=== PATIENT | female | born 1975 | race Two or more races ===

== ENCOUNTER → 2021-11-20 09:31 | Outpatient (BNVA) | payer OTHER, MEDICAID, SELFPAY | PROVIDERS: PCP Internal Medicine; Visit Provider Orthopaedic Surgery | DX: M25.461 Effusion, right knee (principal) | CPT/HCPCS: 99202 ==

== ENCOUNTER 2021-11-27 13:10 | Outpatient (REF) | payer OTHER, MEDICAID, SELFPAY ==
--- NOTE | ~2021-11-27 | MR_ITS ---
EXAMINATION: MR KNEE WITHOUT CONTRAST, RIGHT CLINICAL INFORMATION: Effusion, pain COMPARISON: None TECHNIQUE: MRI of the knee without contrast was performed using routine sequences on a high-field scanner. FINDINGS: MENISCI: Medial Meniscus: Intact Lateral Meniscus: Complex tear. Majority of the posterior horn and body is torn, with meniscal tissue displaced into the intercondylar region and adjacent to the anterior horn. There is diminutive irregular tissue remaining in the region of the posterior horn and body. LIGAMENTS: Cruciate: Intact Collateral: Intact EXTENSOR MECHANISM: Intact. ARTICULAR CARTILAGE/BONE: Patellofemoral Compartment: Prominent cartilage loss in the lateral patellar facet. There is cartilage thinning and fissuring in the central patella. Scattered foci of cartilage thinning and fissuring in the trochlear. Medial Compartment: Focus of moderate to high-grade cartilage loss in the central medial femoral condyle. Cartilage thinning and fissuring otherwise present in the femoral condyle. Marginal osteophytes. Lateral Compartment: Full-thickness oblique fissure in the lateral femoral condyle. Cartilage heterogeneity and fissuring in the medial tibial plateau. Marginal osteophytes. JOINT FLUID AND BURSAE: Moderate effusion. Small to moderate Singh's cyst. Subcutaneous edema. MR/MR knee RT wo con IMPRESSION: 1. Complex tear of the lateral meniscus, with tear of majority of the posterior horn and body, with meniscal tissue displaced into the intercondylar region and along the anterior horn. 2. Moderate patellofemoral compartment, mild medial compartment arthritis. Mild lateral compartment arthritis, including an oblique full-thickness fissure in the lateral femoral condyle. 3. Moderate effusion. Small to moderate Singh's cyst.
== END 2021-11-27 13:11 | disposition home or self-care (01) ==
LOC: HO.MRI 13:10
PROVIDERS: Visit Provider Orthopaedic Surgery
DX: M25.461 Effusion, right knee (principal)
CPT/HCPCS: 73721

== ENCOUNTER → 2021-12-04 09:50 | Outpatient (BNVA) | payer OTHER, MEDICAID, SELFPAY | PROVIDERS: PCP Internal Medicine; Visit Provider Orthopaedic Surgery | DX: S83.271A Complex tear of lateral meniscus, current injury, right knee, initial encounter (principal) | CPT/HCPCS: 99212 ==

== ENCOUNTER 2022-01-06 08:32 | Day surgery (SDC) | payer MEDICAID, SELFPAY ==
--- NOTE | 2022-01-05 08:38 | P.CONAN_ITS ---
Documented by User: Noemí Toussaint NP 01/05/22 08:40 HPI - Anesthesia Eval Consult details Narrative: 46yo F for Right Knee Arthroscopy PMFSH Active Problems Active Problems: All Active Problems (Updated 12/31/21 @ 10:29 by Paola Levy RN) Knee effusion, right (Acute) Lateral meniscus tear (Acute) Past Medical History Medical History Asthma Hypertension Family History Family History Mother Breast cancer in female Father Colon cancer Surgical History Surgical History History of axillary surgery History of esophagogastroduodenoscopy (EGD) History of tubal ligation Hx laparoscopic cholecystectomy Social History Social History Patient Tobacco Use Status: Never used Tobacco Use of substances other than those prescribed or required for medical reasons: No Are you DNR?: No Advance Directives: No Advance Directives Information Provided: Yes Recently lost weight without trying: No Nutrition Risks: No Nutritional Risk Current occupational status: employed 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 Meds Allergies Allergy/AdvReac Type Severity Reaction Status Date / Time No Known Allergies Allergy Verified 11/20/21 09:36 [No Known Allergies*] Home Medications Medication Instructions Recorded Confirmed Last Taken Type albuterol sulfate 90 mcg/actuation 2 puff PO Q4-6H PRN Shortness Of 11/20/21 01/06/22 History aerosol inhaler Breath aspirin 81 mg tablet,delayed 81 mg PO DAILY 11/20/21 Unknown History release fluticasone furoate 100 1 ea inhalation DAILY 11/20/21 01/06/22 History mcg-vilanterol 25 mcg/dose inhalation powder (Breo Ellipta) lisinopril 5 mg tablet 5 mg PO DAILY 11/20/21 Unknown History metoprolol tartrate 25 mg tablet 25 mg PO DAILY 11/20/21 01/06/22 History Exam Exam Date and Time: January 05, 2022 0838 Height,Weight and Vital Signs: Height 5 ft 10 in Assessment and Plan Assessment Anesthesia Assessment: Chart Reviewed Documented by User: Neli Pope MD 01/06/22 10:11 PMFSH Active Problems Active Problems: All Active Problems (Updated 12/31/21 @ 10:29 by Paola Levy RN) Knee effusion, right (Acute) Lateral meniscus tear (Acute) Increased BMI. Denies MAGUE or snoring Past Medical History Medical History Asthma Hypertension Family History Family History Mother Breast cancer in female Father Colon cancer Family history of problems with anesthesia: No Surgical History Surgical History History of axillary surgery History of esophagogastroduodenoscopy (EGD) History of tubal ligation Hx laparoscopic cholecystectomy History of Problems with Anesthesia: No Social History Social History Patient Tobacco Use Status: Never used Tobacco Use of substances other than those prescribed or required for medical reasons: No Are you DNR?: No Advance Directives: No Advance Directives Information Provided: Yes Recently lost weight without trying: No Nutrition Risks: No Nutritional Risk Current occupational status: employed 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 Meds Allergies Allergy/AdvReac Type Severity Reaction Status Date / Time No Known Allergies Allergy Verified 11/20/21 09:36 [No Known Allergies*] Home Medications Medication Instructions Recorded Confirmed Last Taken Type albuterol sulfate 90 mcg/actuation 2 puff PO Q4-6H PRN Shortness Of 11/20/21 01/06/22 History aerosol inhaler Breath aspirin 81 mg tablet,delayed 81 mg PO DAILY 11/20/21 Unknown History release fluticasone furoate 100 1 ea inhalation DAILY 11/20/21 01/06/22 History mcg-vilanterol 25 mcg/dose inhalation powder (Breo Ellipta) lisinopril 5 mg tablet 5 mg PO DAILY 11/20/21 Unknown History metoprolol tartrate 25 mg tablet 25 mg PO DAILY 11/20/21 01/06/22 History Exam Height,Weight and Vital Signs: Height 5 ft 7 in Weight 113.398 kg Vital Signs Temp Pulse Resp BP Pulse Ox O2 Del Method 01/06/22 08:59 97.3 F 70 16 117/62 97 Room Air Airway Mallampati Class: II TM Dist: >3cm Neck ROM: Full Loose/Missing/Broken Teeth: No Heart: RRR Lungs: CTAB. Diminished Assessment and Plan Assessment Anesthesia Assessment: Anesthesia Plan Discussed Final Anesthetic Review Family History of Problems with Anesthesia: No History of Problems with Anesthesia: No NPO: Yes ASA Class: III Final Preanesthetic Review: No Changes in Pt Med Stat, Meds/Allgs Chart Reviewed, Consent Obtained/Reviewed and Anes Risks/Benef Reviewed Patient Risk: Intermediate Procedure Risk: Low Assessment/Block/Sedation in SS: Assess/Block/Sedation-SS Anesthetic Plan Anesthetic Plan: GA Disposition: Standard PACU
[2022-01-06] VITALS (11 sets, daily range): BP systolic 93–123; BP diastolic 53–70; PULSE 64–83; RESP 16–19; TEMP 36.1–36.5; O2SAT 97–100; BMI 39.1
[2022-01-06] MEDS: Lactated Ringers 1,000 ML 100 ML IVCONT (09:30)
--- NOTE | 2022-01-06 11:24 | PM.OP ---
Brief Operative Note Date of Service: 01/06/22 Pre-op diagnosis: right knee lateral meniscus tear Post-op diagnosis: other (1) bucket handle lateral meniscus tear 2) Right knee OA) Procedure: Lateral meniscectomy and chondroplasty Implants: none Surgeon: Robby Muir MD Anesthesia: GETA and local Was an Securities Lending Trader used for this Procedure?: No Estimated blood loss (mL): 10 Tourniquet time (min): 25 Pathology: none sent Condition: stable Disposition: PACU
--- NOTE | 2022-01-06 11:30 | P.OP_ITS ---
Operative Note Operative Note Date of Service: 01/06/22 Narrative: Date of Service: 01/06/22 Pre-op diagnosis: right knee lateral meniscus tear Post-op diagnosis: other (1) bucket handle lateral meniscus tear 2) Right knee OA) Procedure: Lateral meniscectomy and chondroplasty Implants: none Surgeon: Robby Muir MD Anesthesia: GETA and local Was an Frozen Food Department Manager used for this Procedure?: No Estimated blood loss (mL): 10 Tourniquet time (min): 25 Pathology: none sent Condition: stable Disposition: PACU Procedure in detail: Patient was brought to the operating room placed supine on the arthroscopic table and prepped and draped in standard sterile fashion. A time-out was called to identify proper site proper procedure proper surgeon and IV antibiotics per weight were administered. I began by exsanguinating the limb and insufflating tourniquet to 300 mm Hg. Then made a standard anterolateral stab incision. The knee was insufflated with water and 30 degree arthroscope was placed. There was grade 3/4 fibrillations of the patella and trochlea without loose bodies in the supra-patellar pouch. I descended into the medial compartment where I made my medial portal under direct visualization. The medial meniscus was intact. There was scattered G4 chnages of the MFC. THe ACL was intact and the lateral meniscus posterior horn was displaced in the notch c/w a bucket handle tear.. There was a large central lesion of the LFC. Given the concomitant OA and the large LFC chondral defect repair was contra-indicated. Therefore I used a combination of biter shaver and cautery to remove the unstable portions of the bucket handle lateral meniscus tear. 60% of the meniscal volume was removed. I then performed a tricompartmental chondral debridement. Once I was satisfied with this the ACL was examined and found to be intact . I then removed all instrumentation and closed the portals with skin glue. 25 mL of 2% Marcaine with epinephrine was injected into the joint and the surrounding soft tissues. Patient was then placed in sterile dressing and extubated brought recovery room stable condition. There were no known complications.
[2022-01-06] MEDS: fentaNYL citrate/PF 100 MCG/2 ML VIAL 25 MCG IVPUSH ×2 (11:55→12:09)
[2022-01-06] MEDS: oxyCODONE HCl Immed Release 5 MG TABLET PO (11:56)
[2022-01-06] MEDS: Acetaminophen 325 MG TABLET 650 MG PO (11:56)
== END 2022-01-06 13:07 | disposition home or self-care (01) ==
PROVIDERS: Visit Provider Orthopaedic Surgery
PROC: (CPT 29870; principal; 2022-01-06 11:30)
DX: S83.251A Bucket-handle tear of lateral meniscus, current injury, right knee, initial encounter (principal); M17.11 Unilateral primary osteoarthritis, right knee; M25.461 Effusion, right knee; X50.1XXA Overexertion from prolonged static or awkward postures, initial encounter; Y93.9 Activity, unspecified; Y92.9 Unspecified place or not applicable; Y99.8 Other external cause status; I10 Essential (primary) hypertension; J45.909 Unspecified asthma, uncomplicated; Z79.51 Long term (current) use of inhaled steroids; Z79.899 Other long term (current) drug therapy
CPT/HCPCS: 29881; J0171; J0690; J1100; J2250; J2405; J2795; J3010

== ENCOUNTER 2022-03-02 07:00 | Outpatient (RCR) | payer MEDICAID, SELFPAY ==
--- NOTE | 2022-04-14 08:55 | MHC.PT.DC ---
[facility] [place] Office [place] Office [place] Office [address] Sonam Castro [address] [facility] [phone] F: [phone] F: [phone] F: [phone] F: [phone] Physical Therapy Discharge Report Diagnosis: s/p Right knee lateral meniscectomy and chondroplasty Date of Surgery: 01/06/2022 Date of Evaluation: 01/21/22 Date of Discharge: 04/14/22 Treatments to Date: 9 Cancellations to Date: 3 No Shows to Date: 0 Discharge Status: Improved Function Independent with HEP Discharge Summary: Pt made gradual progress with PT with improved gait pattern and functional mobility, but with still intermittent pain. D/c to I HEP at this time Electronically signed by: Carisa Izaguirre PT Please sign and return to therapist. Thank you for your referral.
== END 2022-04-14 08:55 | disposition home or self-care (01) ==
LOC: HO.PT 07:00
PROVIDERS: Visit Provider Physician Assistant
DX: S83.289A Other tear of lateral meniscus, current injury, unspecified knee, initial encounter (principal)
CPT/HCPCS: 97014; 97110; 97140; 97162; 97530

== ENCOUNTER → 2022-05-14 13:32 | Outpatient (BNVA) | payer OTHER, SELFPAY | PROVIDERS: PCP Internal Medicine; Visit Provider Physician Assistant | DX: S83.281D Other tear of lateral meniscus, current injury, right knee, subsequent encounter (principal); M25.461 Effusion, right knee | CPT/HCPCS: 20610; 99212; J1040 ==

== ENCOUNTER → 2022-06-28 11:03 | Outpatient (BNVA) | payer OTHER, SELFPAY | PROVIDERS: PCP Internal Medicine; Visit Provider Nurse Practitioner Family | DX: M25.561 Pain in right knee (principal); Z98.890 Other specified postprocedural states | CPT/HCPCS: 99202 ==

== ENCOUNTER → 2022-07-26 13:46 | Outpatient (BNVA) | payer OTHER, SELFPAY | PROVIDERS: PCP Internal Medicine; Visit Provider Internal Medicine | DX: M25.561 Pain in right knee (principal); Z98.890 Other specified postprocedural states | CPT/HCPCS: 64450 ==

== ENCOUNTER → 2022-07-30 08:50 | Outpatient (BNVA) | payer OTHER, SELFPAY | PROVIDERS: PCP Internal Medicine; Visit Provider Internal Medicine | DX: Z13.89 Encounter for screening for other disorder (principal) ==

== ENCOUNTER → 2022-08-16 08:06 | Outpatient (BNVA) | payer OTHER, SELFPAY | PROVIDERS: PCP Internal Medicine; Visit Provider Internal Medicine | DX: M25.561 Pain in right knee (principal) | CPT/HCPCS: 64450 ==

== ENCOUNTER 2022-12-03 07:58 | Outpatient (AMB) | payer OTHER, SELFPAY ==
--- NOTE | 2022-12-03 08:11 | A.OFFVIS_ITS ---
Intake Vital Signs 12/03/22 08:12 Height 5 ft 7 in Weight 250 lb 8 oz BMI 39.2 BP 122/84 Blood Pressure Location Lt brachial Position Sitting Respiration 18 Pulse 70 Pulse Source Pulse Oximeter Pulse Oximetry (%) 98 Oxygen Delivery Method Room Air Intake Visit Reasons: Increasing Bilateral Leg Pain Allergies No Known Allergies [No Known Allergies*] Allergy (Verified 12/03/22 08:12) HPI Increasing Bilateral Leg Pain HPI Details 47-year-old female presenting today for a follow-up of increasing bilateral leg pain. She has constant low back and leg pain. Her right knee has been worse recently. She noticed a black-blue skin discoloration on her skin. 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 She has pain in her leg from prolonged sitting and driving. She tried physical therapy for knee pain in the past. She had received knee steroid injections in the past, which provided relief for a few hours. We're currently awaiting a decision on our appeal regarding IPSN stimulator placement following a successful nerve block. Past Procedures: 08/16/22: Right infrapatellar saphenous nerve block: 100% relief. 07/26/22: Right SNB at Adductor Canal ? No relief. 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 Review of Systems Const All systems reviewed & are unremarkable except as noted in HPI and below Physical Exam Vital Signs: Last Vital Signs Pulse 70 12/03/22 08:12 Resp 18 12/03/22 08:12 BP 122/84 12/03/22 08:12 Pulse Ox 98 12/03/22 08:12 Oxygen Delivery Method Room Air 12/03/22 08:12 BMI result Body Mass Index 39.2 General: Appears afebrile. Alert and oriented. Mood and affect appropriate. Follows and participates in conversation appropriately. Respiratory effort is unlabored. Able to transition from sit to stand unassisted. Ambulates with bilaterally normal heel strike and toe off. Results Reviewed Results Reviewed: No imaging is available for review. Assessment & Plan Assessment & Plan (1) Low back pain: Code(s): M54.50 - Low back pain, unspecified (2) Lumbar spondylosis: Code(s): M47.816 - Spondylosis without myelopathy or radiculopathy, lumbar region Plan 1. A referral was provided to physical therapy for back pain. Recommended stretching exercises and core strengthening exercises at home. An exercise handout was provided to the patient for home exercise program. 2. Follow up on the status of the appeal regarding her infrapatellar saphenous nerve stimulator. Scribed for Dr. Bal by Rajiv Galarza, medical engineer, on 12/03/2022. I, Dr. Bal, have personally reviewed and agree with the information entered by the scribe. Orders: Orders PT Evaluation and Treatment 12/03/22 M47.816 - Spondylosis without myelopathy or radiculopathy, lumbar region, M54.50 - Low back pain, unspecified Coding Level of Care Code Est Pt Level 3 (44771) Diagnoses Low back pain M54.50 Lumbar spondylosis M47.816
[2022-12-03 08:12] VITALS: BP 122/84; PULSE 70; RESP 18; O2SAT 98; BMI 39.2
== END 2022-12-03 08:34 | disposition home or self-care (01) ==
PROVIDERS: PCP Internal Medicine; Visit Provider Internal Medicine
DX: M54.50 Low back pain, unspecified (principal); M47.816 Spondylosis without myelopathy or radiculopathy, lumbar region
CPT/HCPCS: 99213

== ENCOUNTER → 2022-12-03 07:58 | Outpatient (BNVA) | payer OTHER, SELFPAY | PROVIDERS: PCP Internal Medicine; Visit Provider Internal Medicine | DX: M54.50 Low back pain, unspecified (principal); M47.816 Spondylosis without myelopathy or radiculopathy, lumbar region | CPT/HCPCS: 99212 ==

== ENCOUNTER 2023-05-05 12:37 | Outpatient (AMB) | payer OTHER, SELFPAY ==
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
[2023-05-05 12:46] VITALS: BMI 39.2
== END 2023-05-05 13:08 | disposition home or self-care (01) ==
PROVIDERS: PCP Internal Medicine; Visit Provider Physician Assistant
DX: M17.11 Unilateral primary osteoarthritis, right knee (principal)
CPT/HCPCS: 99213

== ENCOUNTER → 2023-05-05 12:37 | Outpatient (BNVA) | payer OTHER, SELFPAY | PROVIDERS: PCP Internal Medicine; Visit Provider Physician Assistant | DX: M17.11 Unilateral primary osteoarthritis, right knee (principal); Z98.890 Other specified postprocedural states | CPT/HCPCS: 99212 ==

== ENCOUNTER 2023-06-02 09:55 | Outpatient (AMB) | payer OTHER, SELFPAY ==
--- NOTE | 2023-06-02 10:02 | MHC.OFFVIS ---
Intake Intake Visit Reasons: OV - Right knee 01/06/22 NE-w/no xrays Intake Note: Ivett is a 47 year old female presents today for increased pain s/p rt knee , 01/06/22 NE. X rays updated today in the office. Patient reports Allergies No Known Allergies [No Known Allergies*] Allergy (Verified 06/02/23 10:03) Medication List - Last Reconciled 06/02/23 by Radha Odom RN aspirin 81 mg PO DAILY diclofenac sodium 75 mg PO BID PRN docusate sodium 100 mg PO BID fluticasone furoate-vilanterol 100-25 mcg/dose (Breo Ellipta) 1 inh inhalation DAILY lidocaine 5% 1 patch topical DAILY lisinopril 5 mg PO DAILY HPI OV - Right knee 01/06/22 NE-w/no xrays HPI Details Ivett is a 48 year old woman who returns to discuss a disability ~17 months S/P right knee meniscectomy. She continues to complain of pain & weakness in her right knee, along with a crunching sensation with daily activities. She says her knee has not improved with conservative treatment following her surgery, or from a nerve block done by Pain Management. She is currently taking PO Diclofenac. 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 Review of Systems Const All systems reviewed & are unremarkable except as noted in HPI and below Physical Exam Const General: no acute distress, alert and awake Orientation/consciousness: patient oriented x3 HEENT Head: Yes normocephalic and Yes atraumatic Eyes EOM: EOMs intact bilaterally Resp Effort & Inspection: normal respiratory effort and able to speak in complete sentences Cardio Jugular venous distension: no JVD Skin General skin exam: turgor normal Rashes: no rashes Neuro General: patient oriented x3 Extrem Other: Full ROM right knee Mild medial compartment ttp Nl gait Psych Appearance: grossly normal Affect: normal affect Attitude: cooperative Assessment & Plan Assessment & Plan (1) Osteoarthritis of right knee: Code(s): M17.11 - Unilateral primary osteoarthritis, right knee Qualifiers: Osteoarthritis type: unspecified Qualified Code(s): M17.11 - Unilateral primary osteoarthritis, right knee Plan: Ivett had right knee with intra-operative findings of OA and a partial MM was performed. Now she has expected symptoms of knee OA. Her pain vacillates depending on activity. No intervention warranted aty this time. SHe has some temporary disability paperwork that I completed. She will let me know if her pain worsens. Plan Scribed for Robby Muir MD by Raymond Venegas, medical manager, on 06/02/23 at 10:30 AM, EST. Orders: Orders XR knee standing BI 06/02/23 M25.569 - Pain in unspecified knee XR knee RT 2V 06/02/23 M25.569 - Pain in unspecified knee Coding Level of Care Code Est Pt Level 3 (57144) Diagnoses Osteoarthritis of right knee, unspecified osteoarthritis type M17.11 Osteoarthritis type: unspecified
== END 2023-06-02 10:24 | disposition home or self-care (01) ==
PROVIDERS: PCP Internal Medicine; Visit Provider Orthopaedic Surgery
DX: M17.11 Unilateral primary osteoarthritis, right knee (principal)
CPT/HCPCS: 99213

== ENCOUNTER 2023-06-02 11:31 | Outpatient (REF) | payer OTHER, SELFPAY ==
--- NOTE | ~2023-06-02 | XR_ITS ---
EXAMINATION: XR KNEE RIGHT XR BILATERAL STANDING VIEW CLINICAL INFORMATION: Pain and unspecified knee. COMPARISON: MR right knee of 11/27/2021. Radiographs right knee 11/15/2021. TECHNIQUE: AP standing view of bilateral knees. Lateral and sunrise views of the right knee. FINDINGS: Right Knee and AP Standing View: Joint effusion. Yyhtcjeg-tu-bbhipd lateral joint space narrowing with prominent marginal osteophytes. Small medial marginal and posterior patellar osteophytes. Left Knee AP Standing View: Mild medial joint space narrowing. Small medial and lateral marginal osteophytes. XR/XR knee standing BI IMPRESSION: 1. Brfkmbsq-pg-hiaumz degenerative changes right knee. 2. Mild degenerative changes left knee.
--- NOTE | ~2023-06-02 | XR_ITS ---
EXAMINATION: XR KNEE RIGHT XR BILATERAL STANDING VIEW CLINICAL INFORMATION: Pain and unspecified knee. COMPARISON: MR right knee of 11/27/2021. Radiographs right knee 11/15/2021. TECHNIQUE: AP standing view of bilateral knees. Lateral and sunrise views of the right knee. FINDINGS: Right Knee and AP Standing View: Joint effusion. Snxcvjyc-ye-qjaixo lateral joint space narrowing with prominent marginal osteophytes. Small medial marginal and posterior patellar osteophytes. Left Knee AP Standing View: Mild medial joint space narrowing. Small medial and lateral marginal osteophytes. XR/XR knee RT 2V IMPRESSION: 1. Rasukgxj-gl-ifkvob degenerative changes right knee. 2. Mild degenerative changes left knee.
== END 2023-06-02 11:32 | disposition home or self-care (01) ==
LOC: HO.HOSX 11:31
PROVIDERS: Visit Provider Orthopaedic Surgery
DX: M17.11 Unilateral primary osteoarthritis, right knee (principal); Z79.899 Other long term (current) drug therapy
CPT/HCPCS: 73560; 73565; 99212

== ENCOUNTER 2024-05-14 08:38 | Emergency (ER) | payer OTHER, SELFPAY ==
[2024-05-14 08:48] VITALS: BP 127/75; PULSE 74; RESP 16; TEMP 36.3; O2SAT 96; BMI 39.2
--- NOTE | 2024-05-14 09:00 | ED.GENADULT ---
HPI - General Adult General Chief complaint: Extremity Injury, Lower Stated complaint: r ankle pain Time Seen by Provider: 05/14/24 08:59 Source: patient Mode of arrival: ambulatory Limitations: no limitations History of Present Illness ED Provider: Nhi Lopez PA-C HPI narrative: Patient is a 49 year old assigned female at with a history of asthma and HTN presenting to the emergency department today with right heel pain. Patient states that over the last few weeks she has had right heel pain that is worse when stepping on the right heel. Patient denies any dizziness, lightheadedness, abdominal pain, nausea, vomiting, fever, chills, blurry vision, double vision, loss of vision, chest pain, difficulty breathing, shortness of breath, back pain, night sweats, pain with urination, increased urinary frequency, increased urinary urgency, blood in her urine or stool, syncope or a near syncopal episode, recent trauma or falls, bowel incontinence, bladder incontinence, or any other complaints at this time. Onset (ago): week(s) Location: right (heel) Relieving factors: none Exacerbating factors: other (pressure on the heel) Associated symptoms: denies other symptoms Treatments prior to arrival: none Related Data Home Medications ?Medication ?Instructions ?Recorded ?Confirmed aspirin 81 mg tablet,delayed 81 mg PO DAILY 11/20/21 06/02/23 release lisinopril 5 mg tablet 5 mg PO DAILY 11/20/21 06/02/23 docusate sodium 100 mg capsule 100 mg PO BID 06/28/22 06/02/23 fluticasone furoate 100 1 inh inhalation DAILY 06/28/22 06/02/23 mcg-vilanterol 25 mcg/dose inhalation powder (Breo Ellipta) Previous Rx's ?Medication ?Instructions ?Recorded lidocaine 5 % topical patch 1 patch topical DAILY for pain #30 07/27/22 patches diclofenac sodium 75 mg 75 mg PO BID PRN for pain #60 tabs 11/03/23 tablet,delayed release naproxen 500 mg tablet 500 mg PO BID 7 days #14 tabs 05/14/24 Allergies Allergy/AdvReac Type Severity Reaction Status Date / Time No Known Allergies Allergy Verified 05/14/24 08:49 [No Known Allergies*] Review of Systems Constitutional: Constitutional: Reports no additional constitutional complaints, Denies chills, Denies fever(s) and Denies night sweats Eyes: Eyes: Reports no additional eye complaints, Denies blurry vision, Denies change in vision, Denies diplopia, Denies eye discharge, Denies loss of vision and Denies eye pain ENT: Denies dizziness Cardiovascular: Cardiovascular: Reports no additional cardiovascular complaints, Denies chest pain, Denies lightheadedness, Denies Loss of Consciousness and Denies dyspnea Respiratory: Respiratory: Reports no additional respiratory complaints and Denies dyspnea Gastrointestinal: Gastrointestinal: Reports no additional gastrointestinal complaints, Denies abdominal pain, Denies melena, Denies hematochezia, Denies change in bowel habits and Denies change in stool character Genitourinary: Genitourinary: Denies hematuria, Denies urinary frequency, Denies dysuria, Denies urinary incontinence, Denies urinary hesitancy and Denies urinary urgency Musculoskeletal: Musculoskeletal: Reports no additional musculoskeletal complaints, Denies numbness and Denies tingling Comments: right heel pain Neurologic: Denies dizziness, Denies loss of vision, Denies numbness and Denies tingling Psychiatric: Psychiatric: Reports no additional psychiatric complaints Endocrine: Endocrine: Reports no additional endocrine complaints Hematologic/Lymphatic: Hematologic/Lymphatic: Reports no additional hematologic/lymphatic complaints Allergic/Immunologic: Allergic/Immunologic: Reports no additional allergic/immunologic complaints [facility] Past Medical History Attestation statement: The following information was validated with the patient. Source: old records reviewed and nursing notes reviewed Medical History Lateral meniscus tear Right knee pain Low back pain Knee effusion, right Asthma Hypertension Surgical History History of right knee surgery (01/06/22) History of tubal ligation Hx laparoscopic cholecystectomy History of esophagogastroduodenoscopy (EGD) History of axillary surgery Family History Family History Mother Breast cancer in female Father Colon cancer Social History Social History Patient Tobacco Use Status: Never used Tobacco Advance Directives: Yes Advance Directives Information Provided: No Advance Directives on File: No Do you have a plan to hurt others: No Plan Current occupational status: employed 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 Physical Exam ED Vital Signs: Vital Signs - 24 hr 05/14/24 08:48 05/14/24 09:12 Temperature 97.4 F 97.4 F Pulse Rate 74 74 Respiratory Rate 16 16 Blood Pressure 127/75 127/75 Pulse Oximetry 96 96 Oxygen Delivery Method Room Air Room Air BMI result Body Mass Index 39.2 Const General: cooperative, no acute distress, alert and awake Nutritional Appearance: well nourished Orientation/consciousness: patient oriented x3 Limitations: no limitations HENMT Head: Yes normal to inspection and Yes atraumatic Ears: hearing grossly normal bilaterally and external ears normal General nose exam: Normal external nose present, no nasal discharge noted and no epistaxis Face and sinus: Yes normal facial exam, No abrasion and No laceration Mouth: Normal oral and palatal mucosa present, no drooling and no muffled voice Eyes General: appearance normal, both eyes and all related structures Periorbital: periorbital findings normal Eyelids: Yes eyelids normal Conjunctivae: conjunctivae normal Pupils: Equal, round and reactive pupils present EOM: EOMs intact bilaterally Neck Neck: Yes normal visual inspection, Yes full ROM and Yes no lymphadenopathy Chest Chest palpation & inspection: normal inspection of the chest Resp Effort & Inspection: normal respiratory effort and able to speak in complete sentences GI Inspection: Yes normal to inspection Neuro General: patient oriented x3 and moves all extremities Cranial nerves: Yes Equal, round and reactive pupils present Cognition (Neuro): normal cognition Extrem Other: pain with palpation of the right heel, consistent with plantar fasciitis General: Yes normal to inspection, Yes full ROM and Yes capillary refill normal Psych Appearance: grossly normal Mental Status: mental status grossly normal Affect: normal affect Attitude: cooperative Thought process: Normal thought process present Thought content: Normal thought content present Insight: Good insight present (Psych) Medications Administered Discontinued Medications Generic Name Dose Route Start Last Admin Trade Name Freq PRN Reason Stop Dose Admin Ketorolac Tromethamine 15 mg 05/14/24 09:08 05/14/24 09:16 Ketorolac Tromethamine 15 Mg/Ml Vial IM 05/14/24 09:09 15 mg ONCE ONE Administration Medical Decision Making Medical Decision Making MDM Narrative: Patient is a 49 year old assigned female at with a history of asthma and HTN presenting to the emergency department today with right heel pain. Patient's physical exam was as noted in the physical exam portion of this note. I explained my physical exam findings to the patient. I answered all questions asked by the patient. I stressed the importance of the patient taking her medication as directed (either prescribed or as the over the counter packaging recommends). I stressed the importance of the patient following up with her primary care provider and an orthopedic provider. I stressed the importance of the patient returning to the emergency department immediately if her symptoms were to worsen or if she were to develop any dizziness, shortness of breath, difficulty breathing, chest pain, blurry vision, loss of vision, nausea, vomiting, abdominal pain, fever, chills, back pain, or any other complaints. Patient verbalized agreement and understanding with this treatment plan and discharge. Differential Diagnosis Differential Diagnoses: The differential diagnosis associated with the presentation includes Plantar fasciitis Heel pain Admission/Observation Consideration of admission/observation: Escalation of care including admission/observation considered Patient would have been admitted to the hospital had her clinical presentation warranted hospital admission. Tests considered The following testing was considered but not selected: I considered obtaining a right heel / foot / ankle x-ray however, the patient's current clinical presentation did not warrant this. I discussed this with the patient who verbalized understanding and agreement. Prescription Management I considered prescription management with: Pain Medication (patient prescribed pain medicine) Discharge Plan Discharge Clinical Impression: Plantar fasciitis Patient Disposition: Home, Self-Care Instructions: Plantar Fasciitis (ED), Plantar Fasciitis Exercises (ED) Additional Instructions: Follow up with your primary care provider and an orthopedic provider. Return to the emergency department immediately if your symptoms worsen or if you develop any dizziness, shortness of breath, difficulty breathing, chest pain, blurry vision, loss of vision, nausea, vomiting, abdominal pain, fever, chills, back pain, or any other complaints. Prescriptions: New naproxen 500 mg tablet 500 mg PO BID 7 Days Qty: 14 0RF No Action lidocaine 5 % adhesive patch,medicated 1 patch topical DAILY Qty: 30 5RF diclofenac sodium 75 mg tablet,delayed release (DR/EC) 75 mg PO BID PRN (Reason: for pain) Qty: 60 0RF docusate sodium 100 mg capsule 100 mg PO BID fluticasone furoate-vilanterol [Breo Ellipta] 100-25 mcg/dose blister with device 1 inh inhalation DAILY lisinopril 5 mg tablet 5 mg PO DAILY aspirin 81 mg tablet,delayed release (DR/EC) 81 mg PO DAILY Referrals: [facility] [Provider Group] (Call to establish and follow up with an orthopedic provider. ) Yas Rivera MD [Primary Care Provider] - Interventions: ED Discharge Assessment Last Done: 05/14/24 09:12 Discharge Date/Time: 05/14/24 09:18 Print Language: Serbian
[2024-05-14 09:12] VITALS: BP 127/75; PULSE 74; RESP 16; TEMP 36.3; O2SAT 96
[2024-05-14] MEDS: Ketorolac Tromethamine 15 MG/ML VIAL IM (09:16)
== END 2024-05-14 09:18 | disposition home or self-care (01) ==
PROVIDERS: Emergency Provider Emergency Medicine; PCP Internal Medicine
DX: M72.2 Plantar fascial fibromatosis (principal); M25.571 Pain in right ankle and joints of right foot; I10 Essential (primary) hypertension; Z79.899 Other long term (current) drug therapy
CPT/HCPCS: 96372; 99283; 99284; J1885

== ENCOUNTER 2024-07-13 08:46 | Emergency (ER) | payer OTHER, SELFPAY ==
--- NOTE | ~2024-07-13 | CT_ITS ---
EXAMINATION: CT ABDOMEN AND PELVIS WITHOUT CONTRAST CLINICAL INFORMATION: Flank pain, concern for stone. COMPARISON: No prior available. TECHNIQUE: Multidetector volumetric imaging was performed from the superior aspect of the liver through the pubic symphysis. Sagittal and coronal reformatted images were obtained on the technologist's workstation. This CT examination was performed using dose optimization techniques as appropriate, variously including the following: *Automated exposure control *Adjustment of mA and/or kV according to patient size (this includes techniques or standardized protocols for targeted exams where dose is matched to indication/reason for exam; i.e. extremities or head) *Use of iterative reconstruction technique FINDINGS: LUNG BASES: The visualized lung bases are unremarkable. LIVER, GALLBLADDER, AND BILIARY TREE: The unenhanced liver is normal in size, shape, and attenuation. No focal hepatic lesion or biliary ductal dilatation is present. Gallbladder is surgically absent. PANCREAS: Unremarkable. SPLEEN: Mild splenomegaly, with the spleen measuring 14.1 x 10.9 cm. There are a few tiny granulomata present. ADRENAL GLANDS: Unremarkable. KIDNEYS AND URETERS: The kidneys are normal in size, shape, and attenuation. No hydronephrosis, hydroureter, or calculi seen. No perinephric stranding. BLADDER: Unremarkable. GASTROINTESTINAL TRACT: Stomach demonstrates prior gastric sleeve procedure. It is otherwise normal. The duodenal sweep appears normal. Small bowel is normal in caliber and course throughout. No inflammation or wall thickening. A normal appendix is visualized. The colon is normal in caliber, course, with no discrete abnormality. No rectal abnormality. PERITONEUM: No ascites or free air. ABDOMINAL WALL: No significant hernia is appreciated. LYMPH NODES: Normal. VASCULAR: Unremarkable. PELVIC VISCERA: The uterus demonstrates an IUD which appears well-positioned. There is a left ovarian cyst measuring 1.9 cm. No right ovarian abnormality. No adnexal masses. OSSEOUS STRUCTURES: Unremarkable. Mild spinal degenerative changes. CT/CT abdomen pelvis wo IV con IMPRESSION: 1. No acute findings in the abdomen or pelvis. 2. Mild splenomegaly, uncertain etiology. 3. Cholecystectomy and prior gastric sleeve surgery. Electronically signed by: Angelo Marrufo MD 07/13/2024 11:56 AM [facility]
[2024-07-13 08:49] VITALS: BP 132/52; PULSE 95; RESP 18; TEMP 36.1; O2SAT 97; BMI 39.9
[2024-07-13 09:38] LABS: MANUAL DIFF FLAG NO
[2024-07-13 09:41] LABS: Basophils Percent Auto 0.1 % (0-2); Eosinophils Absolute Auto 0.1 X10*3/uL (0.0-0.4); Eosinophils Percent Auto 1.7 % (0-4); Hematocrit 38.7 % (37.0-47.0); Hemoglobin 13.2 g/dl (12.0-16.0); Imm Gran Abs Auto 0.02 X10*3/uL (0.00-0.03); Imm Gran Pct Auto 0.3 % (0.0-0.4); Lymphocytes Absolute Auto 2.1 X10*3/uL (1.2-4.9); Lymphocytes Percent Auto 28.7 % (20-40); Mean Corpuscular HGB Conc 34.1 g/dl (31.0-35.0); Mean Corpuscular Hemoglobin 30.4 pg (27.0-33.0); Mean Corpuscular Volume 89.2 fL (80.0-98.0); Mean Platelet Volume 9.7 fL (9.4-12.3); Monocytes Absolute Auto 0.5 X10*3/uL (0.1-1.2); Monocytes Percent Auto 7.3 % (2-11); Neutrophils Absolute Auto 4.5 x10*3/uL (2.0-8.3); Neutrophils Percent Auto 61.9 % (45-73); Platelet Count 235 X10*3/uL (160-400); Red Blood Count 4.34 X10*6/uL (4.20-5.50); Red Cell Distribution Width 12.6 % (11.0-16.0); White Blood Count 7.3 X10*3/uL (4.8-10.8)
[2024-07-13 09:43] LABS: Appearance Urine Cloudy; Color Urine Dark Yellow; Glucose Urine UA Negative (Negative); Leukocyte Esterase Urine Small (1+) (Negative); Nitrite Urine Negative (Negative); Specific Gravity - Urine 1.025 (1.005-1.025); UMIC TRIGGER UACC YES; Urine Blood Small (1+) (Negative); Urine Ketones Trace mg/dL (Negative); Urine Protein Trace mg/dL (Neg-Trace)
[2024-07-13 09:52] LABS: Bacteria Urine 2+ (None Seen); Hyaline Casts Urine 0-2 /LPF (0-2); UACC Culture Trigger YES
[2024-07-13 09:58] LABS: Alanine Aminotransferase 14 U/L (0-31); Alkaline Phosphatase 96 U/L (39-117); Anion Gap 9 (12-20); Aspartate Amino Transferase 18 U/L (5-31); Bilirubin Direct 0.3 mg/dL (0.0-0.5); Bilirubin Total 0.9 mg/dL (0.0-1.0); Blood Urea Nitrogen 8 mg/dL (9-16); Carbon Dioxide 24 mmol/L (22-29); Chloride 108 mmol/L (96-108); Creatinine Clr Calc Pharmacy 148.1; Estimated Glomerular Filt Rate > 60; Glucose Random 96 mg/dL (60-115); Lipase 6 U/L (8-78); Potassium 3.5 mmol/L (3.3-5.1); Sodium 137 mmol/L (135-145); Total Protein 7.5 g/dL (6.5-8.0)
--- NOTE | 2024-07-13 10:01 | ED.GENADULT ---
HPI - General Adult General Chief complaint: Abdominal Pain Stated complaint: burning stomach pain, headache, side pain Time Seen by Provider: 07/13/24 10:01 Source: patient Mode of arrival: ambulatory Limitations: no limitations History of Present Illness ED Provider: Nhi Esposito PA-C HPI narrative: Patient is a 49 year old assigned female at with a history of HTN and asthma presenting to the emergency department today with left flank pain, nausea, vomiting, and diarrhea. Patient states that over the last 2 days she has had left sided flank pain with nausea, vomiting, diarrhea, and foul smelling urine. Patient denies any dizziness, lightheadedness, abdominal pain, fever, chills, blurry vision, double vision, loss of vision, chest pain, difficulty breathing, shortness of breath, back pain, night sweats, pain with urination, increased urinary frequency, increased urinary urgency, blood in her urine or stool, syncope or a near syncopal episode, recent trauma or falls, bowel incontinence, bladder incontinence, or any other complaints at this time. Onset (ago): day(s) (2) Relieving factors: none Exacerbating factors: none Associated symptoms: nausea/vomiting Treatments prior to arrival: none Related Data Home Medications ?Medication ?Instructions ?Recorded ?Confirmed aspirin 81 mg tablet,delayed 81 mg PO DAILY 11/20/21 06/02/23 release lisinopril 5 mg tablet 5 mg PO DAILY 11/20/21 06/02/23 docusate sodium 100 mg capsule 100 mg PO BID 06/28/22 06/02/23 fluticasone furoate 100 1 inh inhalation DAILY 06/28/22 06/02/23 mcg-vilanterol 25 mcg/dose inhalation powder (Breo Ellipta) Previous Rx's ?Medication ?Instructions ?Recorded lidocaine 5 % topical patch 1 patch topical DAILY for pain #30 07/27/22 patches diclofenac sodium 75 mg 75 mg PO BID PRN for pain #60 tabs 11/03/23 tablet,delayed release naproxen 500 mg tablet 500 mg PO BID 7 days #14 tabs 05/14/24 cefuroxime axetil 250 mg tablet 250 mg PO BID 7 days #14 tabs 07/13/24 ondansetron 4 mg disintegrating 4 mg PO Q8H 3 days #9 tabs 07/13/24 tablet Allergies Allergy/AdvReac Type Severity Reaction Status Date / Time No Known Allergies Allergy Verified 07/13/24 08:51 [No Known Allergies*] Review of Systems Constitutional: Constitutional: Reports no additional constitutional complaints, Denies chills, Denies fever(s) and Denies night sweats Eyes: Eyes: Reports no additional eye complaints, Denies blurry vision, Denies change in vision, Denies diplopia, Denies eye discharge, Denies loss of vision and Denies eye pain ENT: Denies dizziness Cardiovascular: Cardiovascular: Reports no additional cardiovascular complaints, Denies chest pain, Denies lightheadedness, Denies Loss of Consciousness and Denies dyspnea Respiratory: Respiratory: Reports no additional respiratory complaints and Denies dyspnea Gastrointestinal: Gastrointestinal: Reports no additional gastrointestinal complaints, Denies abdominal pain, Denies melena, Denies hematochezia, Reports change in bowel habits, Reports change in stool character, Reports diarrhea, Reports nausea and Reports vomiting Genitourinary: Genitourinary: Denies hematuria, Denies urinary frequency, Denies dysuria, Reports flank pain, Denies urinary incontinence, Denies urinary hesitancy and Denies urinary urgency Musculoskeletal: Musculoskeletal: Reports no additional musculoskeletal complaints, Denies numbness and Denies tingling Neurologic: Denies dizziness, Denies loss of vision, Denies numbness and Denies tingling Psychiatric: Psychiatric: Reports no additional psychiatric complaints Endocrine: Endocrine: Reports no additional endocrine complaints Hematologic/Lymphatic: Hematologic/Lymphatic: Reports no additional hematologic/lymphatic complaints Allergic/Immunologic: Allergic/Immunologic: Reports no additional allergic/immunologic complaints [facility] Past Medical History Attestation statement: The following information was validated with the patient. Source: old records reviewed and nursing notes reviewed Medical History Lateral meniscus tear Right knee pain Low back pain Knee effusion, right Asthma Hypertension Surgical History History of right knee surgery (01/06/22) History of tubal ligation Hx laparoscopic cholecystectomy History of esophagogastroduodenoscopy (EGD) History of axillary surgery Family History Family History Mother Breast cancer in female Father Colon cancer Social History Social History Patient Tobacco Use Status: Never used Tobacco Advance Directives: No Advance Directives Information Provided: Yes Current occupational status: employed 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 Physical Exam ED Vital Signs: Vital Signs - 24 hr 07/13/24 08:49 Temperature 97.0 F Pulse Rate 95 Respiratory Rate 18 Blood Pressure 132/52 L Pulse Oximetry 97 Oxygen Delivery Method Room Air BMI result Body Mass Index 39.9 Const General: cooperative, no acute distress, alert and awake Nutritional Appearance: well nourished Orientation/consciousness: patient oriented x3 Limitations: no limitations HENMT Head: Yes normal to inspection and Yes atraumatic Ears: hearing grossly normal bilaterally and external ears normal General nose exam: Normal external nose present, no nasal discharge noted and no epistaxis Face and sinus: Yes normal facial exam, No abrasion and No laceration Mouth: Normal oral and palatal mucosa present, no drooling and no muffled voice Eyes General: appearance normal, both eyes and all related structures Periorbital: periorbital findings normal Eyelids: Yes eyelids normal Conjunctivae: conjunctivae normal Pupils: Equal, round and reactive pupils present EOM: EOMs intact bilaterally Neck Neck: Yes normal visual inspection, Yes full ROM and Yes no lymphadenopathy Chest Chest palpation & inspection: normal inspection of the chest Resp Effort & Inspection: normal respiratory effort and able to speak in complete sentences GI Inspection: Yes normal to inspection Neuro General: patient oriented x3, moves all extremities and CN's II-XI intact bilaterally Cranial nerves: Yes Equal, round and reactive pupils present Cognition (Neuro): normal cognition Extrem General: Yes normal to inspection, Yes full ROM and Yes capillary refill normal Psych Appearance: grossly normal Mental Status: mental status grossly normal Affect: normal affect Attitude: cooperative Thought process: Normal thought process present Thought content: Normal thought content present Insight: Good insight present (Psych) Medications Administered Discontinued Medications Generic Name Dose Route Start Last Admin Trade Name Freq PRN Reason Stop Dose Admin Ceftriaxone Sodium 1 gm 07/13/24 10:03 07/13/24 11:06 Ceftriaxone Sodium 1 Gm Vial IVPUSH 07/13/24 10:04 1 gm ONCE ONE Administration Sodium Chloride 1,000 mls @ 999 mls/hr 07/13/24 10:15 07/13/24 11:06 Ns IV 07/13/24 11:15 999 mls/hr .Q1H1M SHAN Administration Ketorolac Tromethamine 15 mg 07/13/24 10:47 07/13/24 11:05 Ketorolac Tromethamine 15 Mg/Ml Vial IVPUSH 07/13/24 10:48 15 mg ONCE ONE Administration Ondansetron HCl 4 mg 07/13/24 10:02 07/13/24 11:05 Ondansetron Hcl 4 Mg/2 Ml Vial IVPUSH 07/13/24 10:03 4 mg ONCE ONE Administration Medical Decision Making Medical Decision Making [facility] Narrative: Patient is a 49 year old assigned female at with a history of HTN and asthma presenting to the emergency department today with left flank pain, nausea, vomiting, and diarrhea. Patient's physical exam was unremarkable. Patient's blood work was unremarkable. Patient's urine showed evidence of a UTI. Patient's CT abd/pelvis showed no acute process. I explained my physical exam findings as well as all test results to the patient. I answered all questions asked by the patient. Patient received Toradol, ceftriaxone, Zofran, and IV fluids which, upon re-evaluation, she stated it helped her symptoms significantly. I stressed the importance of the patient taking her medication as directed (either prescribed or as the over the counter packaging recommends). I stressed the importance of the patient following up with her primary care provider. I stressed the importance of the patient returning to the emergency department immediately if her symptoms were to worsen or if she were to develop any dizziness, shortness of breath, difficulty breathing, chest pain, blurry vision, loss of vision, nausea, vomiting, abdominal pain, fever, chills, back pain, or any other complaints. Patient verbalized agreement and understanding with this treatment plan and discharge. Differential Diagnosis Differential Diagnoses: The differential diagnosis associated with the presentation includes UTI Flank pain Admission/Observation Consideration of admission/observation: Escalation of care including admission/observation considered Patient would have been admitted to the hospital had her work up had any findings where hospital admission was appropriate and her clinical presentation warranted hospital admission. Lab Data [facility] Lab Attestation statement: I reviewed the patient's lab results. My interpretation of these results are in the [facility] Rationale portion of this note. 07/13/24 09:13 07/13/24 09:13 Labs: Lab Results 07/13/24 07/13/24 Range/Units 09:13 09:19 WBC 7.3 (4.8-10.8) X10*3/uL RBC 4.34 (4.20-5.50) X10*6/uL Hgb 13.2 (12.0-16.0) g/dl Hct 38.7 (37.0-47.0) % MCV 89.2 (80.0-98.0) fL MCH 30.4 (27.0-33.0) pg MCHC 34.1 (31.0-35.0) g/dl RDW 12.6 (11.0-16.0) % Plt Count 235 (160-400) X10*3/uL MPV 9.7 (9.4-12.3) fL Immature Gran % (Auto) 0.3 (0.0-0.4) % Neut % (Auto) 61.9 (45-73) % Lymph % (Auto) 28.7 (20-40) % [place] % (Auto) 7.3 (2-11) % Eos % (Auto) 1.7 (0-4) % Baso % (Auto) 0.1 (0-2) % Lymph # (Auto) 2.1 (1.2-4.9) X10*3/uL [place] # (Auto) 0.5 (0.1-1.2) X10*3/uL Eos # (Auto) 0.1 (0.0-0.4) X10*3/uL Baso # (Auto) 0.0 (0.0-0.2) X10*3/uL Abs Immat Gran (auto) 0.02 (0.00-0.03) X10*3/uL Absolute Neuts (auto) 4.5 (2.0-8.3) x10*3/uL Absolute Nucleated RBC 0.000 (0.0-0.012) X10*3/uL Nucleated RBC % (auto) 0.0 (0.0-0.2) /100WBC Sodium 137 (135-145) mmol/L Potassium 3.5 (3.3-5.1) mmol/L Chloride 108 (96-108) mmol/L Carbon Dioxide 24 (22-29) mmol/L Anion Gap 9 L (12-20) BUN 8 L (9-16) mg/dL Creatinine 0.61 (0.5-1.4) mg/dL Estim Creat Clear Calc 148.1 Estimated GFR > 60 Random Glucose 96 (60-115) mg/dL Calcium 9.0 (8.4-10.2) mg/dL Total Bilirubin 0.9 (0.0-1.0) mg/dL Direct Bilirubin 0.3 (0.0-0.5) mg/dL AST 18 (5-31) U/L ALT 14 (0-31) U/L Alkaline Phosphatase 96 (39-117) U/L Total Protein 7.5 (6.5-8.0) g/dL Albumin 4.0 (3.5-5.0) g/dL Lipase 6 L (8-78) U/L Urine Color Dark Yellow Urine Appearance Cloudy Urine pH 5.0 (5.0-9.0) Ur Specific [place] 1.025 (1.005-1.025) Urine Protein Trace (Neg-Trace) mg/dL Urine Glucose (UA) Negative (Negative) mg/dL Urine Ketones Trace (Negative) mg/dL Urine Blood Small (1+) H (Negative) Urine Nitrite Negative (Negative) Ur Leukocyte Esterase Small (1+) H (Negative) Urine RBC 3-5 H (0-2) /HPF Urine WBC 11-20 H (0-5) /HPF Ur Squamous Epith Cells 11-20 (0-2) /HPF Urine Bacteria 2+ (None Seen) Hyaline Casts 0-2 (0-2) /LPF Influenza Type A (PCR) NEGATIVE (Negative) Influenza Type B (PCR) NEGATIVE (Negative) RSV RNA Qual (PCR) NEGATIVE (Negative) SARS-CoV-2 RNA (RT-PCR) NEGATIVE (Negative) Independent Interpretation I performed an independent interpretation of an: CT Scan Interpretation: My interpretation is in agreement with the radiologist's impression of this imaging study. Report Number: [id number]: Total DLP = 1051.00 mGy-cm EXAMINATION: CT ABDOMEN AND PELVIS WITHOUT CONTRAST CLINICAL INFORMATION: Flank pain, concern for stone. COMPARISON: No prior available. TECHNIQUE: Multidetector volumetric imaging was performed from the superior aspect of the liver through the pubic symphysis. Sagittal and coronal reformatted images were obtained on the technologist's workstation. This CT examination was performed using dose optimization techniques as appropriate, variously including the following: *Automated exposure control *Adjustment of mA and/or kV according to patient size (this includes techniques or standardized protocols for targeted exams where dose is matched to indication/reason for exam; i.e. extremities or head) *Use of iterative reconstruction technique FINDINGS: LUNG BASES: The visualized lung bases are unremarkable. LIVER, GALLBLADDER, AND BILIARY TREE: The unenhanced liver is normal in size, shape, and attenuation. No focal hepatic lesion or biliary ductal dilatation is present. Gallbladder is surgically absent. PANCREAS: Unremarkable. SPLEEN: Mild splenomegaly, with the spleen measuring 14.1 x 10.9 cm. There are a few tiny granulomata present. ADRENAL GLANDS: Unremarkable. KIDNEYS AND URETERS: The kidneys are normal in size, shape, and attenuation. No hydronephrosis, hydroureter, or calculi seen. No perinephric stranding. BLADDER: Unremarkable. GASTROINTESTINAL TRACT: Stomach demonstrates prior gastric sleeve procedure. It is otherwise normal. The duodenal sweep appears normal. Small bowel is normal in caliber and course throughout. No inflammation or wall thickening. A normal appendix is visualized. The colon is normal in caliber, course, with no discrete abnormality. No rectal abnormality. PERITONEUM: No ascites or free air. ABDOMINAL WALL: No significant hernia is appreciated. LYMPH NODES: Normal. VASCULAR: Unremarkable. PELVIC VISCERA: The uterus demonstrates an IUD which appears well-positioned. There is a left ovarian cyst measuring 1.9 cm. No right ovarian abnormality. No adnexal masses. OSSEOUS STRUCTURES: Unremarkable. Mild spinal degenerative changes. CT/CT abdomen pelvis wo IV con IMPRESSION: 1. No acute findings in the abdomen or pelvis. 2. Mild splenomegaly, uncertain etiology. 3. Cholecystectomy and prior gastric sleeve surgery. Electronically signed by: Angelo Marrufo MD 07/13/2024 11:56 AM EST Dictated By: Angelo Marrufo MD Signed By: Electronically signed by Angelo Marrufo MD 07/13/24 1156 Radiology Impression Discussion of test interpretation with radiology: I have reviewed the radiologist's reading. Prescription Management I considered prescription management with: Antibiotic (patient given antibiotic for UTI) Discharge Plan Discharge Clinical Impression: UTI (urinary tract infection) Patient Disposition: Home, Self-Care Instructions: Urinary Tract Infection in Women (DC) Additional Instructions: Take your medication as prescribed. Follow up with your primary care provider. Return to the emergency department immediately if your symptoms worsen or if you develop any dizziness, shortness of breath, difficulty breathing, chest pain, blurry vision, loss of vision, nausea, vomiting, abdominal pain, fever, chills, back pain, or any other complaints. Prescriptions: New cefuroxime axetil 250 mg tablet 250 mg PO BID 7 Days Qty: 14 0RF ondansetron 4 mg tablet,disintegrating 4 mg PO Q8H 3 Days Qty: 9 0RF No Action lidocaine 5 % adhesive patch,medicated 1 patch topical DAILY Qty: 30 5RF diclofenac sodium 75 mg tablet,delayed release (DR/EC) 75 mg PO BID PRN (Reason: for pain) Qty: 60 0RF naproxen 500 mg tablet 500 mg PO BID 7 Days Qty: 14 0RF docusate sodium 100 mg capsule 100 mg PO BID fluticasone furoate-vilanterol [Breo Ellipta] 100-25 mcg/dose blister with device 1 inh inhalation DAILY lisinopril 5 mg tablet 5 mg PO DAILY aspirin 81 mg tablet,delayed release (DR/EC) 81 mg PO DAILY Referrals: Yas Rivera MD [Primary Care Provider] - Stand Alone Forms: Work/School Release Print Language: Taiwanese
[2024-07-13 10:22] LABS: Influenza A PCR NEGATIVE (Negative); Influenza B PCR NEGATIVE (Negative); Resp Syncy Virus RNA Qual PCR NEGATIVE (Negative); SARS COV2 PCR INHOUSE NEGATIVE (Negative)
--- OUTSIDE RECORDS SUMMARY | 2024-07-13 10:56 | XMS_ITS | Encounter Summary ---
Author Organization [employer] [facility] Address [address] [place] [address] Care Team Providers Care Shank Paperer Name Role Phone Yas Rivera MD Primary Care Provider [phone] Encounter Details Date Type Department Care Team Description 12/09/2022 Orders Only Medical Records [address] [place] [address] Yas Rivera MD [address] [place] [id number] Social History Tobacco Use Types Packs/Day Years Used Date Smoking Tobacco: Never Smokeless Tobacco: Never Alcohol Use Standard Drinks/Week Comments No 0 (1 standard drink = 0.6 oz pur e alcohol) Sex Assigned at Date Recorded Not on file Job Start Date Occupation Industry Not on file Not on file Not on file COVID-19 Exposure Response Date Recorded In the last 10 days, have yo u been in contact with someone who was confirmed or suspected to have Coronavirus/COVID-19? No / Unsure 12/02/2022 3:35 PM EDT documented as of this encounter Plan of Treatment Not on file documented as of this encounter Procedures Procedure Name Priority Date/Time Associated Diagnosis Comments OUTSIDE MAMMO Routine 12/08/2022 documented in this encounter Results * OUTSIDE MAMMO (12/08/2022) Yas Rivera MD RADIOLOGY documented in this encounter Visit Diagnoses Not on filedocumented in this encounter Care Teams Shank Paperer Relationship Specialty Start Date End Date Yas Rivera MD PCP - General Internal Medicine 11/15/18 documented as of this encounter
--- OUTSIDE RECORDS SUMMARY | 2024-07-13 10:56 | XMS_ITS | Encounter Summary ---
Author Organization [facility] Address [address] [place] [address] Care Team Providers Care Heat Treater Name Role Phone Scarlett Sigala MD Primary Care Provider Unavailabl Community, Pcp Primary Care Provider Unavailabl e Community, Pcp Primary Care Provider Unavailabl e Reuben Torres MD Primary Care Provider [phone] Yas Rivera MD Primary Care Provider [phone] Encounter Details Date Type Department Care Team Description 08/12/2017 [facility] Medical Records [address] [place] [address] Alfredo Trevino MD [address] [place] [address] [place] [id number] Social History Tobacco Use Types Packs/Day Years Used Date Smoking Tobacco: Never Smokeless Tobacco: Never Alcohol Use Standard Drinks/Week Comments No 0 (1 standard drink = 0.6 oz pur e alcohol) Sex Assigned at Date Recorded Not on file Job Start Date Occupation Industry Not on file Not on file Not on file documented as of this encounter Plan of Treatment Not on file documented as of this encounter Visit Diagnoses Not on filedocumented in this encounter Care Teams Heat Treater Relationship Specialty Start Date End Date Scarlett Sigala MD PCP - General Internal Medicine 12/09/16 11/28/17 Community, Pcp PCP - General Internal Medicine 11/29/17 12/18/17 Community, Pcp PCP - General Internal Medicine 12/19/17 05/30/18 Reuben Torres MD PCP - General Internal Medicine 05/31/18 11/14/18 Yas Rivera MD PCP - General Internal Medicine 11/15/18 documented as of this encounter
--- OUTSIDE RECORDS SUMMARY | 2024-07-13 10:56 | XMS_ITS | Encounter Summary ---
Author Organization [facility] Address [address] [place] [address] Care Team Providers Care Travelers' Aid Worker Name Role Phone Yas Rivera MD Primary Care Provider [phone] Encounter Details Date Type Department Care Team Description 03/26/2020 Bench Shear Operator Report Medical Records [address] [place] [address] Arnoldo Cummings MD [address] [place] [address] Social History Tobacco Use Types Packs/Day Years [...] on filedocumented in this encounter Care Teams Travelers' Aid Worker Relationship Specialty Start Date End Date Yas Rivera MD PCP - General Internal Medicine 11/15/18 documented as of this encounter
--- OUTSIDE RECORDS SUMMARY | 2024-07-13 10:56 | XMS_ITS | Encounter Summary ---
Author Organization [facility] Address [address] [place] [address] Care Team Providers Care Jewel Bearing Turner Name Role Phone Yas Rivera MD Primary Care Provider [phone] Reason for Visit * Reason Comments E-prescribe Rx Request Encounter Details Date Type Department Care Team Description 12/10/2018 Refill Internal Medicine - [address], [address] [place] [address] Reuben Torres MD [address] [place] [address] E-prescribe Rx Request Social History Tobacco Use Types Packs/Day Years Used Date Smoking Tobacco: Never Smokeless Tobacco: Never Alcohol Use Standard Drinks/Week Comments No 0 (1 standard drink = 0.6 oz pur e alcohol) Sex Assigned at Date Recorded Not on file Job Start Date Occupation Industry Not on file Not on file Not on file documented as of this encounter Miscellaneous Notes * Telephone Encounter - Emily Carreon M.A. - 12/11/2018 10:00 AM EDT Patient would like script to be: E-PRESCRIBED/FAXED TO PHARMACY WHEN WAS THE PATIENT'S LAST APPOINTMENT IN ADULT MEDICINE? 11/10/17 WHEN WAS THE LAST TIME THE PATIENT SAW THEIR PCP? Same as above Does patient have an upcoming appointment? Yes 12/20/18 (THE MEDICATION REQUESTED IS ON THE MED LIST ABOVE) All of the medications requested were on the CURRENT MEDS list Did you check the Pharmacy information above?: YES Patient wants: 90 -day supply Is this a mail order prescription request ? NO If the refill is from a FAXED refill request what is the RX # listed on the fax? N/A Patients current insurance carrier is: Payor: [employer] / Plan: Mango $20 [place] 1500 / Product Type: IntrakrO [id number] documented in this encounter Plan of Treatment Not on file documented as of this encounter Visit Diagnoses Not on filedocumented in this encounter Care Teams Jewel Bearing Turner Relationship Specialty Start Date End Date Yas Rivera MD PCP - General Internal Medicine 11/15/18 documented as of this encounter
--- OUTSIDE RECORDS SUMMARY | 2024-07-13 10:56 | XMS_ITS | Encounter Summary ---
Author Organization [facility] Address [address] [place] [address] Care Team Providers Care Smoking Pipe Repairer Name Role Phone Yas Rivera MD Primary Care Provider [phone] Reason for Visit * Reason Onset Date Comments Medication 03/04/2022 Encounter Details Date Type Department Care Team Description 03/04/2022 Telephone Gastroenterology - [address] [id number] Sameer Soler MD [address] [place] [id number] Medication Social History Tobacco Use Types Packs/Day Years [...] encounter Miscellaneous Notes * Telephone Encounter - Reese Torres - 03/04/2022 2:40 PM EDT Patients last Colon was done 2018 and recommended to repeat in [address] Sharpe. Patient is on a recall list. documented in this encounter Plan of Treatment Not on file documented as of this encounter Visit Diagnoses Not on filedocumented in this encounter Care Teams Smoking Pipe Repairer Relationship Specialty Start Date End Date Yas Rivera MD PCP - General Internal Medicine 11/15/18 documented as of this encounter
--- OUTSIDE RECORDS SUMMARY | 2024-07-13 10:56 | XMS_ITS | Encounter Summary ---
Author Organization [email or web address] [facility] Address [address] [place] [address] Care Team Providers Care Survey Instrument Operator Name Role Phone Yas Rivera MD Primary Care Provider [phone] Reason for Visit * Reason Onset Date Comments Faxed Refill 09/04/2021 Encounter Details Date Type Department Care Team Description 09/04/2021 Refill Internal Medicine - [address], [address] [place] [address] Yas Rivera MD [address] [place] [phone] Faxed Refill Social History Tobacco Use Types Packs/Day Years [...] encounter Miscellaneous Notes * Telephone Encounter - Larissa Ruiz - 09/04/2021 9:53 AM EDT Patient would like script to be: E-PRESCRIBED/FAXED TO PHARMACY WHEN WAS THE PATIENT'S LAST APPOINTMENT IN ADULT MEDICINE? 12/04/2020 WHEN WAS THE LAST TIME THE PATIENT SAW THEIR PCP? Same as above Does patient have an upcoming appointment? No-[facility] to [facility]ill request. (THE MEDICATION REQUESTED IS ON THE MED LIST ABOVE) All of the medications requested were on the CURRENT MEDS list Did you check the Pharmacy information above?: YES Patient wants: 30 -day supply Is this a mail order prescription request ? NO If the refill is from a FAXED refill request what is the RX # listed on the fax? [phone] Patients current insurance carrier is: Payor: [employer] S[employer]DED / Plan: HMO $20 LANDER 1500 / Product Type: HMO [id number] documented in this encounter Plan of Treatment Not on file documented as of this encounter Visit Diagnoses Not on filedocumented in this encounter Care Teams Survey Instrument Operator Relationship Specialty Start Date End Date Yas Rivera MD PCP - General Internal Medicine 11/15/18 documented as of this encounter
--- OUTSIDE RECORDS SUMMARY | 2024-07-13 10:56 | XMS_ITS | Encounter Summary ---
Author Organization [facility] Address [address] [place] [address] Care Team Providers Care Cloth Bleaching Range Back Tender Name Role Phone Yas Rivera MD Primary Care Provider [phone] Encounter Details Date Type Department Care Team Description 06/11/2020 Hospital Medical Records [address] [place] [address] Sameer Soler MD [address] [place] [address] Social History Tobacco Use Types Packs/Day Years Used Date Smoking Tobacco: Never Smokeless Tobacco: Never Alcohol Use Standard Drinks/Week Comments No 0 (1 standard drink = 0.6 oz pur e alcohol) Sex Assigned at Date Recorded Not on file Job Start Date Occupation Industry Not on file Not on file Not on file COVID-19 Exposure Response Date Recorded In the last month, have you been in contact with someone who was confirmed or suspected to have Coronavirus / COVID-19? No / Unsure 05/28/2020 10:33 AM EST documented as of this encounter Plan of Treatment Not on file documented as of this encounter Visit Diagnoses Not on filedocumented in this encounter Care Teams Cloth Bleaching Range Back Tender Relationship Specialty Start Date End Date Yas Rivera MD PCP - General Internal Medicine 11/15/18 documented as of this encounter
--- OUTSIDE RECORDS SUMMARY | 2024-07-13 10:56 | XMS_ITS | Encounter Summary ---
Author Organization [facility] Address [address] [place] [address] Care Team Providers Care Central Office Frame Wirer Name Role Phone Yas Rivera MD Primary Care Provider [phone] Encounter Details Date Type Department Care Team Description 06/20/2020 Telephone Cardio PVC POC [address] [place] [address] Arnoldo Cummings MD [address] [place] [address] Social History Tobacco Use Types Packs/Day Years [...] or suspected to have Coronavirus / COVID-19? Unable to assess 06/23/2020 9:11 AM EST documented as of this encounter Miscellaneous Notes * Telephone Encounter - Mary Patel NP - 06/26/2020 8:31 AM EST Reviewed [facility] note in nextgen which says if this is unchanged we will see patient back in several years regarding echo. 2yr follow-up OK. * Telephone Encounter - Carmen Zuniga - 06/20/2020 2:03 PM EST The pt does not currently have a f/u. How soon would you like her to follow up? Pt's made aware of results ----- Message from Arnoldo Cummings MD sent at 06/16/2020 1:09 PM EST ----- Heart function mildly decreased see next follow up thanks documented in this encounter Plan of Treatment Not on file documented as of this encounter Visit Diagnoses Not on filedocumented in this encounter Care Teams Central Office Frame Wirer Relationship Specialty Start Date End Date Yas Rivera MD PCP - General Internal Medicine 11/15/18 documented as of this encounter
--- OUTSIDE RECORDS SUMMARY | 2024-07-13 10:56 | XMS_ITS | Encounter Summary ---
Author Organization [facility] Address [address] [place] [address] Care Team Providers Care Toe Sewer Name Role Phone Yas Rivera MD Primary Care Provider [phone] Encounter Details Date Type Department Care Team Description 03/25/2021 Orders Only Medical Records [address] [place] [address] Yas Rivera MD [address] [place] [phone] Social History Tobacco Use Types Packs/Day [...] Date/Time Associated Diagnosis Comments OUTSIDE MAMMO Routine 03/25/2021 documented in this encounter Results * OUTSIDE MAMMO (03/25/2021) Yas Rivera MD RADIOLOGY documented in this encounter Visit Diagnoses Not on filedocumented in this encounter Care Teams Toe Sewer Relationship Specialty Start Date End Date Yas Rivera MD PCP - General Internal Medicine 11/15/18 documented as of this encounter
--- OUTSIDE RECORDS SUMMARY | 2024-07-13 10:56 | XMS_ITS | Encounter Summary ---
Author Organization [facility] Address [facility] [place] [address] Care Team Providers Care Director Of Securities And Real Estate Name Role Phone Yas Rivera MD Primary Care Provider [phone] Encounter Details Date Type Department Care Team Description 06/02/2023 Ship Manager Report Medical Records [address] [place] [id number] Robby Muir MD Social History Tobacco Use Types Packs/Day Years [...] on filedocumented in this encounter Care Teams Director Of Securities And Real Estate Relationship Specialty Start Date End Date Yas Rivera MD PCP - General Internal Medicine 11/15/18 documented as of this encounter
--- OUTSIDE RECORDS SUMMARY | 2024-07-13 10:56 | XMS_ITS | Encounter Summary ---
Author Organization [facility] Address [address] [place] [address] Care Team Providers Care Microsoft Exchange Architect Name Role Phone Yas Rivera MD Primary Care Provider [phone] Reason for Visit * Reason Comments E-prescribe Rx Request Encounter Details Date Type Department Care Team Description 12/20/2020 Refill Internal Medicine - [address], [address] [place] [address] Yas Rivera MD [address] [place] [phone] E-prescribe Rx Request Social History Tobacco Use [...] encounter Miscellaneous Notes * Telephone Encounter - Yane Bhagat L.P.N. - 12/24/2020 11:04 AM EDT Refill meotprolol tartrate 25 mg daily Last refill 07/08/2020 #90 1 refill BP Readings from Last 5 Encounters: 05/29/20 125/71 05/28/20 116/78 05/19/20 112/76 04/21/20 125/62 02/19/20 118/80 thanks * Telephone Encounter - Kary Otoole - 12/24/2020 10:59 AM EDT Jamie 12/04/20 documented in this encounter Plan of Treatment Not on file documented as of this encounter Visit Diagnoses Not on filedocumented in this encounter Care Teams Microsoft Exchange Architect Relationship Specialty Start Date End Date Yas Rivera MD PCP - General Internal Medicine 11/15/18 documented as of this encounter
--- OUTSIDE RECORDS SUMMARY | 2024-07-13 10:56 | XMS_ITS | Encounter Summary ---
Author Organization [facility] Address [address] [place] [address] Care Team Providers Care Graphic Design Intern Name Role Phone Yas Rivera MD Primary Care Provider [phone] Encounter Details Date Type Department Care Team Description 07/09/2019 Telephone Internal Medicine [address], [address] [place] [address] Yas Rivera MD [address] [place] [phone] Social History Tobacco Use Types Packs/Day [...] Miscellaneous Notes * Telephone Encounter - Mary Felton M.A. - 07/09/2019 12:24 PM EST ----- Message from Yas Rivera MD sent at 07/09/2019 12:03 PM EST ----- Labs excellent,no concerns documented in this encounter Plan of Treatment Not on file documented as of this encounter Visit Diagnoses Not on filedocumented in this encounter Care Teams Graphic Design Intern Relationship Specialty Start Date End Date Yas Rivera MD PCP - General Internal Medicine 11/15/18 documented as of this encounter
--- OUTSIDE RECORDS SUMMARY | 2024-07-13 10:56 | XMS_ITS | Encounter Summary ---
Author Organization [facility] Address [facility] [place] [address] Care Team Providers Care Rib Builder Name Role Phone Yas Rivera MD Primary Care Provider [phone] Encounter Details Date Type Department Care Team Description 05/05/2023 Chemical Production Machine Operator Report Medical Records [address] [place] [address] Petrona Head PA-C Social History Tobacco Use Types Packs/Day Years [...] on filedocumented in this encounter Care Teams Rib Builder Relationship Specialty Start Date End Date Yas Rivera MD PCP - General Internal Medicine 11/15/18 documented as of this encounter
--- OUTSIDE RECORDS SUMMARY | 2024-07-13 10:56 | XMS_ITS | Encounter Summary ---
Author Organization [facility] Address [address] [place] [address] Care Team Providers Care Chopper Operator Name Role Phone Scarlett Sigala MD Primary Care Provider Unavailabl [facility], Pcp Primary Care Provider Unavailabl [facility], Pcp Primary Care Provider Unavailabl e Reuben Torres MD Primary Care Provider [phone] Yas Rivera MD Primary Care Provider [phone] Yas Rivera MD Primary Care Provider [phone] Encounter Details Date Type Department Care Team Description 12/06/2016 Ocular Care Aide Report Medical Records [address] [place] [id number] [place] [address] Social History Tobacco Use Types Packs/Day Years Used Date Smoking Tobacco: Never Assessed Sex Assigned at Date Recorded Not on file Job Start Date Occupation Industry Not on file Not on file Not on file documented as of this encounter Plan of Treatment Not on file documented as of this encounter Visit Diagnoses Not on filedocumented in this encounter Care Teams Chopper Operator Relationship Specialty Start Date End Date Scarlett Sigala MD PCP - General Internal Medicine 12/09/16 11/28/17 [facility], Pcp PCP - General Internal Medicine 11/29/17 12/18/17 [facility], Pcp PCP - General Internal Medicine 12/19/17 05/30/18 Reuben Torres MD PCP - General Internal Medicine 05/31/18 11/14/18 Yas Rivera MD PCP - General Internal Medicine 11/15/18 Yas Rivera MD PCP - General 09/13/12 12/08/16 documented as of this encounter
--- OUTSIDE RECORDS SUMMARY | 2024-07-13 10:56 | XMS_ITS | Encounter Summary ---
Author Organization [facility] Address [address] [place] [address] Care Team Providers Care Building Construction Foreman Name Role Phone Yas Rivera MD Primary Care Provider [phone] Reason for Visit * Reason Comments E-prescribe Rx Request Encounter Details Date Type Department Care Team Description 06/01/2019 Refill Internal Medicine - [address], [address] [place] [address] Reuben Torres MD [address] [place] [address] E-prescribe Rx Request Social History Tobacco Use [...] encounter Miscellaneous Notes * Telephone Encounter - Lashonda Felton M.A. - 06/01/2019 11:40 AM EST Refills sent to pcp BP Readings from Last 3 Encounters: 03/02/19 128/60 01/08/19 100/64 06/06/18 124/79 No results found for: NA, K, CO2, CL, BUN, CREAT, GLU, CA, GFR * Telephone Encounter - Annalisa Vaughn - 06/01/2019 8:15 AM EST Patient would like script to be: E-PRESCRIBED/FAXED TO PHARMACY WHEN WAS THE PATIENT'S LAST APPOINTMENT IN ADULT MEDICINE? 01/08/19 WHEN WAS THE LAST TIME THE PATIENT SAW THEIR PCP? Same as above Does patient have an upcoming appointment? Yes 10/16/19 (THE MEDICATION REQUESTED IS ON THE MED [...] is: Payor: [employer] SELF FUNDED / Plan: Oculeve $20 KISSIMMEE 1500 / Product Type: CardioLogsO [id number] documented in this encounter Plan of Treatment Not on file documented as of this encounter Visit Diagnoses Not on filedocumented in this encounter Care Teams Building Construction Foreman Relationship Specialty Start Date End Date Yas Rivera MD PCP - General Internal Medicine 11/15/18 documented as of this encounter
--- OUTSIDE RECORDS SUMMARY | 2024-07-13 10:56 | XMS_ITS | Clinical Summary ---
Author Organization [facility] Address [address] [place] [address] Care Team Providers Care Learning Support Assistant Name Role Phone Yas Rivera MD Primary Care Provider [phone] Allergies Active Allergy Reactions Severity Noted Date Comments No Known Drug Allergies 12/15/2010 Medications Medication Sig Dispensed Refills Start Date End Date Status Fluticasone Furoate-Vilantero l (BREO ELLIPTA) 100-25 MCG/INH AEROSOL POWDER,BREATH ACTIVATED INHALE 1 PUFFS DAILY 0 07/10/2013 Active levonorgestrel (MIRENA) 20 MCG/24HR IUD 1 Each by Intrauterine route once. 0 Active omeprazole (PRILOSEC) 20 MG capsule Take 1 Capsule by mouth daily for 360 days. 90 Capsule 1 09/29/2023 09/23/2024 Active ALBUTEROL SULFATE 108 (90 Base) MCG/ACT Aero Soln Inhale 2 Puffs into the lungs every 6 hours as needed for Cough. 8.5 g 5 09/29/2023 Active aspirin (Aspirin Low Dose) 81 MG EC tablet Take 1 Tablet by mouth daily. 90 Tablet 1 09/29/2023 Active Cholecalciferol (Vitamin D) 50 MCG (2000 UT) Tab Take 1 Tablet by mouth daily. 90 Tablet 3 09/29/2023 Active docusate sodium (COLACE) 100 MG capsule Take 1 Capsule by mouth 2 times daily. 60 Capsule 5 09/29/2023 Active metoprolol (LOPRESSOR) 25 MG tablet Take 1 Tablet by mouth daily. 90 Tablet 1 09/29/2023 Active lisinopril (PRINIVIL,ZESTRIL ) 10 MG tablet Take 1 Tablet by mouth daily. 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 She is on SSI Resolved Problems Problem Noted Date Resolved Date Morbid obesity 08/23/2017 02/01/2018 Immunizations Name Administration Dates Next Due Influenza Vaccine-preservati ve Free-quadrivalent 4 Years 02/19/2020 PPD-RBMG 08/16/2017,10/31/2012 Pneumoccoccal(Adult) Polysaccharide PPSV23 01/08 Tdap 01/08/2019 Family History Medical History Relation Name Comments Cancer of the Colon Father Relation Name Status Comments Father Social History Tobacco Use Types Packs/Day Years Used Date Smoking Tobacco: Never Smokeless Tobacco: Never Tobacco Cessation:Counseling Given: Not Answered Alcohol Use Standard Drinks/Week Comments No 0 (1 standard drink = 0.6 oz pur e alcohol) Sex Assigned at Date Recorded Not on file Job Start Date Occupation Industry Not on file Not on file Not on file Last Filed Vital Signs Vital Sign Reading Time Taken Comments Blood Pressure 139/89 09/29/2023 2:29 PM EDT Pulse 63 09/29/2023 2:29 PM EDT Temperature 35.7 ??C (96.3 ??F) 02/23/2023 9:05 AM ED T Respiratory Rate 16 03/02/2019 1:28 PM EDT Oxygen Saturation 98% 09/29/2023 2:29 PM EDT Inhaled Oxygen Concentration - - Weight 120.7 kg (266 lb) 09/29/2023 2:29 PM EDT Height 170.2 cm (5' 7 ) 09/29/2023 2:29 PM EDT Body Mass Index 41.66 09/29/2023 2:29 PM EDT Plan of Treatment Health Maintenance Due Date Last Done Comments Covid-19 Vaccine (#1) 1976 CERVICAL CANCER SCREENING 01/22/1997 INFLUENZA (#1) 2024 02/19/2020 COLON CANCER SCREENING 03/12/2024 03/12/2019 BMI CHECK/ADVISE 05/30/2024 09/29/2023, , 12/02/2022, Additional history exists DEPRESSION SCREENING/FOLLOWUP 05/30/2024 SOCIAL NEEDS SCREENING 05/30/2024 MAMMOGRAM 01/20/2025 01/21/2024, 11/27, 03/27/2021, Additional history exists BASELINE HEALTH EXAM 40-64 11/24/202511/24, 10/18/2023, 02/23/2023, Additional history exists CHOLESTEROL SCREENING 09/21/2027 09/20/2022 , 02/19/2020, 07/09/2019 DTAP/TDAP/TD (3 - Td or Tdap) 01/08/2029 01/08/2019, 08/01/2014 PNEUMOCOCCAL VACCINE FOR HIG H RISK PATIENTS (#2) 01/22/2041 01/08/2019 Care Teams Learning Support Assistant Relationship Specialty Start Date End Date Yas Rivera MD PCP - General Internal Medicine 11/15/18
--- OUTSIDE RECORDS SUMMARY | 2024-07-13 10:56 | XMS_ITS | Encounter Summary ---
Author Organization [facility] Address [address] [place] [address] Care Team Providers Care Lubricating Specialist Name Role Phone Yas Rivera MD Primary Care Provider [phone] Encounter Details Date Type Department Care Team Description 07/25/2019 Hospital Medical Records [address] [place] [address] Fracisco Sam Social History Tobacco Use Types Packs/Day Years [...] on filedocumented in this encounter Care Teams Lubricating Specialist Relationship Specialty Start Date End Date Yas Rivera MD PCP - General Internal Medicine 11/15/18 documented as of this encounter
--- OUTSIDE RECORDS SUMMARY | 2024-07-13 10:56 | XMS_ITS | Clinical Summary ---
Author Organization [facility] Address [address] [place] [address] Phone Care Team Providers Care Fractionation Plant Supervisor Name Role Phone Yas Rivera MD Primary Care Provider [phone] Allergies No known active allergies Medications albuterol HFA (PROVENTIL HFA;VENTOLIN HFA) 108 (90 Base) MCG/ACT inhaler Inhale 2 Puffs into the lungs every 6 hours as needed for Cough. - Inhalation Active cholecalciferol (VITAMIN D-3) 50 mcg (2,000 unit) tablet Take 1 tablet (2,000 Units total) by mouth 1 (one) time each day. Active docusate sodium (COLACE) 100 mg capsule Take 1 Capsule by mouth 2 times daily. - Oral Active lisinopriL (PRINIVIL,ZESTR IL) 10 mg tablet Take 1 tablet (10 mg total) by mouth 1 (one) time each day. Active levonorgestreL (MIRENA) 21 mcg/24 hr (8 yrs) 52 mg IUD 1 Each by Intrauterine route once. - Intrauterine Active fluticasone furoate-vilante roL (Breo Ellipta) 100-25 mcg/dose inhaler Inhale 1 puff by mouth 1 (one) time each day. Active aspirin 81 mg EC tablet TAKE 1 TABLET BY MOUTH EVERY DAY 90 tablet 1 4 Active metoprolol tartrate (LOPRESSOR) 25 mg tablet TAKE 1 TABLET BY MOUTH EVERY DAY 90 tablet 2 4 Active omeprazole (PriLOSEC) [address] capsule TAKE 1 CAPSULE BY MOUTH DAILY FOR 360 DAYS. 90 capsule 1 5 Active diclofenac (Voltaren Arthritis Pain) 1 % topical gel Apply 4 g topically 2 (two) times a day. 240 g 1 5 08/04/19 Active Active Problems Problem Noted Date Diagnosed Date Hiatal hernia 02/22/2024 Hypertension 02/22/2024 Asthma, mild 02/22/2024 GERD (gastroesophageal reflux disease) Carpal tunnel syndrome 02/22/2024 Ovarian cyst 02/22/2024 Obstructive sleep apnea 02/22/2024 Problems with learning 02/22/2024 Left knee DJD 02/22/2024 Lumbar pain 02/22/2024 New daily persistent headache 02/22/2024 Encounters Date Type Department Care Team Description 06/04/2024 9:00 AM EST Office Visit Orthopedic Surgery - [address] [address] Prasanna Hernandez, DPM Tendonitis, Achilles, right (Primary Dx); Pain of left heel; Plantar fascial fibromatosis from Last 3 Months Immunizations Name Administration Dates Next Due Influenza Quadravalent, MDCK , 0.5ml, preservative free (Flucelvax) 6mo and older 02/19/2020 PPD Test 08/16/2017,10/31/2012 Pneumococcal polysaccharide 23 valent (Pneumovax 23) 2yo and older 01/08/2019 Tdap Tetanus diptheria acell ular pertussis (Boostrix; Adacel) 7yo and older 01/08/2019 Surgical History Surgery Date Site/Laterality Comments BARIATRIC SURGERY 08/12/2017 PROCEDURE: MS LAPS GSTRC RSTRICTIV PX LONGITUDINAL GASTRECTOMY OTHER SURGICAL HISTORY PROCEDURE: MS LAPS GASTRIC RESTRICTIVE PX REMOVE DEVICE; COMMENT: lap band removed 2011 due to slippage TUBAL LIGATION PROCEDURE: HISTORICAL TUBAL LIGATION Medical History Medical History Date Comments Asthma, mild 02/01/2018 DX:Asthma, mild Carpal tunnel syndrome 02/01/2018 DX:Carpal tunnel syndrome GERD (gastroesophageal reflux disease) 02/01/2018 DX:GERD (gastroesophageal reflux disease) Hiatal hernia 02/01/2018 DX:Hiatal hernia ; COMMENT: Repaired 08/12/17 History of sleeve gastrectomy 02/01/2018 DX :History of sleeve gastrectomy; COMMENT: 08/12/17; H/o lap band, Removed 2011 due to slippage Hypertension 02/01/2018 DX:Hypertension Obstructive sleep apnea 02/01/2018 DX:Obstr uctive sleep apnea Ovarian cyst 02/01/2018 DX:Ovarian cyst Problems with learning 12/16/2011 DX:Proble ms with learning; COMMENT: Comments: diagnosed in [place] when she was in school. She is on SSI Left knee DJD 12/16/2016 DX:Left knee DJD Family History Medical History Relation Name Comments Colon cancer Father Relation Name Status Comments Father Social History Tobacco Use Types Packs/Day Years Used Date Smoking Tobacco: Never Smokeless Tobacco: Never Alcohol Use Standard Drinks/Week Comments No 0 (1 standard drink = 0.6 oz pur e alcohol) Comments Unknown Sex and Gender Information Value Date Recorded Sex Assigned at Not on file Legal Sex Female 5:44 AM EST Gender Identity Not on file Sexual Orientation Not on file Obstetrics History Last Filed Vital Signs Vital Sign Reading Time Taken Comments Blood Pressure 130/80 04/02/2024 7:51 PM EST Pulse 77 04/02/2024 7:51 PM EST Temperature 36.4 ??C (97.5 ??F) 04/02/2024 7:51 PM ES T Respiratory Rate - - Oxygen Saturation 99% 04/02/2024 7:51 PM EST Inhaled Oxygen Concentration - - Weight 117 kg (259 lb) 06/04/2024 9:19 AM EST Height 170.2 cm (5' 7.01 ) 06/04/2024 9:19 AM ES T Body Mass Index 40.56 06/04/2024 9:19 AM EST Plan of Treatment Upcoming Encounters Date Type Department Care Team (Late st Contact Info) Description 07/19/2024 8:45 AM EST Office Visit Orthopedic Surgery - [place] [address] [phone] Prasanna Hernandez DPM [address] [address] 08/24/2024 8:00 AM EDT Appointment [facility] [address] [place] [phone] Akira Soler MD 175 [facility] [address] [place] [address] Health Maintenance Due Date Last Done Comments Hepatitis B Vaccines (1 of 3 - 19+ 3-dose series) 01/22/1995 Cervical Cancer Screening: Pap Smear 01/22/1997 Pneumococcal Vaccine: Pediatrics (0 to 5 Years) and At-Risk Patients (6 to 64 Years) (2 of 2 - PCV) 01/09/2020 01/08/2019 Colorectal Cancer Screening: Colonoscopy 05/08/2022 Depression Screening 05/08/2022 HIV Screening 05/08/2022 Hepatitis C Screening 05/08/2022 Social Influencers of Health Screening 05/08/2022 COVID-19 Vaccine ( season) 2024 04/20/2021 Influenza Vaccine (#1) 2024 02/19/2020 Hypertension/CHF/CAD Annual BMP Blood Test 09/28/2024 09/29/2023, 09/29/2023 Breast Cancer Screening 2026 01/24/20 24, 12/09/2022, 03/25/2021, Additional history exists Cholesterol Screening (Lipid Panel) 09/21/2027 09/20/2022 DTaP,Tdap,and Td Vaccines (3 - Td or Tdap) 01/08/2029 01/08/2019, 08/01/2014 HIB Vaccines Aged Out No longer eligi ble based on patient's age to complete this topic HPV Vaccines Aged Out No longer eligi ble based on patient's age to complete this topic Hepatitis A Vaccines Aged Out No long er eligible based on patient's age to complete this topic IPV Vaccines Aged Out No longer eligi ble based on patient's age to complete this topic MMR Vaccines Aged Out No longer eligi ble based on patient's age to complete this topic Meningococcal ACWY Vaccine Aged Out N o longer eligible based on patient's age to complete this topic Meningococcal B Vacine Aged Out No lo nger eligible based on patient's age to complete this topic RSV Immunization Patients Under 20 months Aged Out No longer eligible based on patient's age to complete this topic Varicella Vaccines Aged Out No longer eligible based on patient's age to complete this topic Procedures Procedure Name Priority Date/Time Associated Diagnosis Comments TWIN SCREENING DIGITAL Routine 01/24/2024 2:24 PM EDT Encounter for screening mammogram for malignant neoplasm of breast ANNUAL BMP BLOOD TEST Routine 09/29/2023 LIPID PANEL Routine 09/20/2022 from Last 3 Months or Most Recently Relevant to Health Maintenance Results * TWIN SCREENING DIGITAL (01/24/2024 2:24 PM EDT) Anatomical Region Laterality Modality Mammography 01/21/2024 11:0 0 AM EDT Narrative 01/24/2024 2:[address] [facility] Diagnostic Imaging Department [address] [place] [id number] Patient: ??TAM OLSON ?/Age/Sex: 1975 - 49 - F Unit#: ??[id number] ? Location/Status: ??SPDIMAM/REG CLI ? Mnemonic/Ordering Site: ??DIGSC/SPDI Ordering Physician: ??YAS RIVERA MD Twin Screening Digital - 01/21/24 - 112 Report Status:Signed EXAM: Twin Screening Digital EXAM DATE AND TIME: 01/21/2024 11:28 AM HISTORY: ??Annual screening COMPARISON: ??12/08/2022 through 03/15/2019 TECHNIQUE: Bilateral digital breast tomosynthesis was performed in the CC and MLO projections. Computer aided detection with aisle411 3D 3.1 was employed. TISSUE DENSITY: b. There are scattered areas of fibroglandular density. FINDINGS: No suspicious masses, grouped microcalcifications, or areas of architectural distortion are seen. The skin and vascularity are unremarkable. IMPRESSION: Stable mammographic appearance of the breasts. ??No evidence of malignancy is seen. A negative mammogram in the presence of a clinically suspicious palpable abnormality does not preclude the possibility of malignancy or alter the indications for biopsy. BI-RADS: ??Category 1: Negative RECOMMENDATION(S): 1: Routine screening mammogram BILATERAL in 1 year. master Dictating Physician: ??STEVE BALLARD MD Electronically Signed by: ??STEVE BALLARD MD Dic Date/Time: ??01/24/24 1419 Sign date/Time: ??01/24/24 1423 Procedure Note Steve Ballard MD - 03/14/2024 [facility] Diagnostic Imaging Department [address] [place] [address] Patient: TAM OLSON /Age/Sex: 1975 - 49 - F Unit#: [id number] Location/Status: SPDIMAM/REG CLI Mnemonic/Ordering Site: [facility] Ordering Physician: YAS RIVERA MD Twin Screening Digital - 01/21/24 - 1127 Report Status:Signed EXAM: [facility] Screening Digital EXAM DATE AND TIME: 01/21/2024 11:28 AM HISTORY: Annual screening COMPARISON: 12/08/2022 through 03/15/2019 TECHNIQUE: Bilateral digital breast tomosynthesis was performed in the CCand MLO projections. Computer aided detection with iCAD NextNine AI 3D 3.1was employed. TISSUE DENSITY: b. There are scattered areas of fibroglandular density. FINDINGS: No suspicious masses, grouped microcalcifications, or areas ofarchitectural distortion are seen. The skin and vascularity are unremarkable. IMPRESSION: Stable mammographic appearance of the breasts. No evidence of malignancyis seen. A negative mammogram in the presence of a clinically suspicious palpable abnormality does not preclude the possibility of malignancy or alter the indications for biopsy. BI-RADS: Category 1: Negative RECOMMENDATION(S): 1: Routine screening mammogram BILATERAL in 1 year. master Dictating Physician: STEVE BALLARD MD Electronically Signed by: STEVE BALLARD MD Dic Date/Time: 01/24/24 1419 Sign date/Time: 01/24/24 1424 Yas Rivera MD IMG BI PROCEDURES Final Result * Annual BMP Blood Test (09/29/2023) Annual BMP Blood Test abstracted Historical Provider HEALTH MAINTENANCE Final Result * (ABNORMAL) Lipid panel (09/20/2022) LDL/HDL Ratio 4 0 - 4 Triglycerides 75 0 - 150 mg/dL Cholesterol 159 0 - 200 mg/dL HDL 42 >=40 mg/dL LDL Cholesterol 102(A) 0 - 100 mg/dL Blood Venous blood specimen / Unknown Historical Provider LAB BLOOD ORDERABLES Marguerite l Result from Last 3 Months or Most Recently Relevant to Health Maintenance Insurance Care Teams Fractionation Plant Supervisor Relationship Specialty Start Date End Date Yas Rivera MD [address] [place] [address] [address] [place] [phone] PCP - General Internal Medicine 11/15/18
--- OUTSIDE RECORDS SUMMARY | 2024-07-13 10:56 | XMS_ITS | Encounter Summary ---
Author Organization [facility] Address [facility] [place] [address] Care Team Providers Care Brood Hatchery Manager Name Role Phone Yas Rivera MD Primary Care Provider [phone] Encounter Details Date Type Department Care Team Description 11/20/2021 Stave Cutting Supervisor Report Medical Records [address] [place] [address] Robby Muir MD Social History Tobacco Use [...] on filedocumented in this encounter Care Teams Brood Hatchery Manager Relationship Specialty Start Date End Date Yas Rivera MD PCP - General Internal Medicine 11/15/18 documented as of this encounter
--- OUTSIDE RECORDS SUMMARY | 2024-07-13 10:56 | XMS_ITS | Encounter Summary ---
Author Organization [facility] Address [address] [place] [address] Care Team Providers Care Greenhouse Staff Name Role Phone Yas Rivera MD Primary Care Provider [phone] Reason for Visit * Reason Onset Date Comments Faxed Refill 04/07/2020 Encounter Details Date Type Department Care Team Description 04/07/2020 Refill Internal Medicine - [address], [address] [place], [place] [phone] Yas Rivera MD [address] [place] [phone] Faxed Refill Social History Tobacco Use [...] Telephone Encounter - Lashonda Felton M.A. - 04/07/2020 1:45 PM EST Lab Results Component Value Date NA 141 02/19/2020 K 3.5 02/19/2020 CO2 28 02/19/2020 CL 107 02/19/2020 BUN 8 02/19/2020 CREAT 0.60 02/19/2020 GLU 84 02/19/2020 ALB 3.7 02/19/2020 SGOT 15 02/19/2020 SGPT 20 02/19/2020 TBILI 0.5 02/19/2020 ALKPHOS 102 02/19/2020 TP 7.0 02/19/2020 CA 8.5 02/19/2020 GFR > 60 02/19/2020 * Telephone Encounter - Génesis Krista - 04/07/2020 10:10 AM EST NGA 02/19/2020 No future appt. Patient due 08/18/2020 90 day supply. documented in this encounter Plan of Treatment Not on file documented as of this encounter Visit Diagnoses Not on filedocumented in this encounter Care Teams Greenhouse Staff Relationship Specialty Start Date End Date Yas Rivera MD PCP - General Internal Medicine 11/15/18 documented as of this encounter
--- OUTSIDE RECORDS SUMMARY | 2024-07-13 10:56 | XMS_ITS | Encounter Summary ---
Author Organization [facility] Address [facility] [place] [address] Care Team Providers Care Audio Production Instructor Name Role Phone Yas Rivera MD Primary Care Provider [phone] Encounter Details Date Type Department Care Team Description 08/16/2022 Batch Plant Supervisor Report Medical Records [address] [place] [address] Markel Oquendo MD Social History Tobacco Use Types Packs/Day [...] on filedocumented in this encounter Care Teams Audio Production Instructor Relationship Specialty Start Date End Date Yas Rivera MD PCP - General Internal Medicine 11/15/18 documented as of this encounter
--- OUTSIDE RECORDS SUMMARY | 2024-07-13 10:56 | XMS_ITS | Encounter Summary ---
Author Organization [facility] Address [address] [place] [address] Care Team Providers Care Vice President Biostatistics Name Role Phone Yas Rivera MD Primary Care Provider [phone] Reason for Visit * Reason Onset Date Comments other 09/10/2019 COVID19 Encounter Details Date Type Department Care Team Description 09/10/2019 Telephone Internal Medicine - [address], [address] [place], [place] [phone] Yas Rivera MD [address] [place] [phone] other (COVID19) Social History Tobacco Use Types Packs/Day Years [...] encounter Miscellaneous Notes * Telephone Encounter - Delores Grande - 09/11/2019 12:41 PM EDT Patient's called to report the patient found out she is negative for COVID19. Patient is faxing the notification letter to Dr Rivera today. * Telephone Encounter - Delores Grande - 09/10/2019 1:33 PM EDT Patient called to let doctor know she had the COVID19 test done on 09/08/2019 at the [facility]. It will take 7 days to find out the results. documented in this encounter Plan of Treatment Not on file documented as of this encounter Visit Diagnoses Not on filedocumented in this encounter Care Teams Vice President Biostatistics Relationship Specialty Start Date End Date Yas Rivera MD PCP - General Internal Medicine 11/15/18 documented as of this encounter
--- OUTSIDE RECORDS SUMMARY | 2024-07-13 10:56 | XMS_ITS | Encounter Summary ---
Author Organization [facility] Address [address] [place] [address] Care Team Providers Care Interactive Media Director Name Role Phone Reuben Torres MD Primary Care Provider [phone] Yas Rivera MD Primary Care Provider [phone] Encounter Details Date Type Department Care Team Description 06/08/2018 Release of Information Medical Records [address] [place] [id number] Abstract, Provider Social History Tobacco Use Types Packs/Day Years [...] on filedocumented in this encounter Care Teams Interactive Media Director Relationship Specialty Start Date End Date Reuben Torres MD PCP - General Internal Medicine 05/31/18 11/14/18 Yas Rivera MD PCP - General Internal Medicine 11/15/18 documented as of this encounter
--- OUTSIDE RECORDS SUMMARY | 2024-07-13 10:56 | XMS_ITS | Encounter Summary ---
Author Organization [facility] Address [facility] [place] [address] Care Team Providers Care Transmission Engineer Name Role Phone Yas Rivera MD Primary Care Provider [phone] Encounter Details Date Type Department Care Team Description 12/04/2021 Terminal Computer Operator Report Medical Records [address] [place] [address] Robby Muir MD Social History Tobacco Use [...] on filedocumented in this encounter Care Teams Transmission Engineer Relationship Specialty Start Date End Date Yas Rivera MD PCP - General Internal Medicine 11/15/18 documented as of this encounter
--- OUTSIDE RECORDS SUMMARY | 2024-07-13 10:56 | XMS_ITS | Encounter Summary ---
Author Organization [facility] Address [address] [place] [address] Care Team Providers Care Neurodiagnostic Technologist Name Role Phone Yas Rivera MD Primary Care Provider [phone] Encounter Details Date Type Department Care Team Description 03/27/2021 Orders Only Medical Records [address] [place] [address] Yas Rivera MD [address] [place] [phone] Social History Tobacco Use Types Packs/Day [...] Date/Time Associated Diagnosis Comments OUTSIDE MAMMO Routine 03/27/2021 documented in this encounter Results * OUTSIDE MAMMO (03/27/2021) Yas Rivera MD RADIOLOGY documented in this encounter Visit Diagnoses Not on filedocumented in this encounter Care Teams Neurodiagnostic Technologist Relationship Specialty Start Date End Date Yas Rivera MD PCP - General Internal Medicine 11/15/18 documented as of this encounter
--- OUTSIDE RECORDS SUMMARY | 2024-07-13 10:56 | XMS_ITS | Encounter Summary ---
Author Organization [facility] Address [facility] [place] [address] Care Team Providers Care Manager Baby Name Role Phone Yas Rivera MD Primary Care Provider [phone] Encounter Details Date Type Department Care Team Description 07/30/2022 Thoracic Medicine Physician Report Medical Records [address] [place] [address] Markel Oquendo MD Social History Tobacco Use [...] on filedocumented in this encounter Care Teams Manager Baby Relationship Specialty Start Date End Date Yas Rivera MD PCP - General Internal Medicine 11/15/18 documented as of this encounter
--- OUTSIDE RECORDS SUMMARY | 2024-07-13 10:56 | XMS_ITS | Encounter Summary ---
Author Organization [facility] Address [facility] [place] [address] Care Team Providers Care Social Services Technician Name Role Phone Yas Rivera MD Primary Care Provider [phone] Encounter Details Date Type Department Care Team Description 05/14/2022 Income Tax Manager Report Medical Records [address] [place] [address] Petrona Head PA-C Social History Tobacco Use [...] on filedocumented in this encounter Care Teams Social Services Technician Relationship Specialty Start Date End Date Yas Rivera MD PCP - General Internal Medicine 11/15/18 documented as of this encounter
--- OUTSIDE RECORDS SUMMARY | 2024-07-13 10:56 | XMS_ITS | Encounter Summary ---
Author Organization [facility] Address [address] [place] [address] Care Team Providers Care Sql Etl Developer Name Role Phone Yas Rivera MD Primary Care Provider [phone] Encounter Details Date Type Department Care Team Description 09/16/2022 Telephone Internal Medicine [address], [address] [place] [address] Yas Rivera MD [address] [place] [phone] Social History Tobacco Use Types Packs/Day [...] on filedocumented in this encounter Care Teams Sql Etl Developer Relationship Specialty Start Date End Date Yas Rivera MD PCP - General Internal Medicine 11/15/18 documented as of this encounter
--- OUTSIDE RECORDS SUMMARY | 2024-07-13 10:56 | XMS_ITS | Encounter Summary ---
Author Organization [facility] Address [address] [place] [address] Care Team Providers Care Loading Manager Name Role Phone Yas Rivera MD Primary Care Provider [phone] Reason for Visit * Reason Comments E-prescribe Rx Request Encounter Details Date Type Department Care Team Description 06/01/2019 Refill Internal Medicine - [place] [address] [facility], [address] [place] [address] Audrey Yi PA-C [address] [place] [address] E-prescribe Rx Request Social History Tobacco Use [...] Felton M.A. - 06/01/2019 11:40 AM EST Refill sent to pcp * Telephone Encounter - Beronica Paula - 06/01/2019 10:49 AM EST Patient would like script to be: E-PRESCRIBED/FAXED TO PHARMACY WHEN WAS THE PATIENT'S LAST APPOINTMENT IN ADULT MEDICINE? 01/08/19 WHEN WAS THE LAST TIME THE PATIENT SAW THEIR PCP? x Does patient have an upcoming appointment? Yes [...] is: Payor: LEXI SELF FUNDED / Plan: [employer] $20 [place] 1500 / Product Type: HMO [id number] documented in this encounter Plan of Treatment Not on file documented as of this encounter Visit Diagnoses Not on filedocumented in this encounter Care Teams Loading Manager Relationship Specialty Start Date End Date Yas Rivera MD PCP - General Internal Medicine 11/15/18 documented as of this encounter
--- OUTSIDE RECORDS SUMMARY | 2024-07-13 10:56 | XMS_ITS | Encounter Summary ---
Author Organization [facility] Address [address] [place] [address] Care Team Providers Care Packaging Inspector Name Role Phone Yas Rivera MD Primary Care Provider [phone] Reason for Visit * Reason Comments E-prescribe Rx Request Encounter Details Date Type Department Care Team Description 05/03/2021 Refill Internal Medicine [address], [address] [place], [place] [phone] Yas Rivera MD [address] [place] [phone] E-prescribe Rx Request Social History Tobacco [...] encounter Miscellaneous Notes * Telephone Encounter - Bre Colin - 05/06/2021 11:22 AM EST Patient would like script to be: E-PRESCRIBED/FAXED TO PHARMACY WHEN WAS THE PATIENT'S LAST APPOINTMENT IN ADULT MEDICINE? 12/04/20 WHEN WAS THE LAST TIME THE PATIENT SAW THEIR PCP? Same as above Does patient have an upcoming appointment? Patient was sent a My Chart request to set up an appointment as they are due. (THE MEDICATION REQUESTED IS ON THE MED [...] is: Payor: LEXI SELF FUNDED / Plan: [employer] $20 [place] 1500 / Product Type: P[employer] [id number] documented in this encounter Plan of Treatment Not on file documented as of this encounter Visit Diagnoses Not on filedocumented in this encounter Care Teams Packaging Inspector Relationship Specialty Start Date End Date Yas Rivera MD PCP - General Internal Medicine 11/15/18 documented as of this encounter
[2024-07-13] MEDS: ondansetron HCL 4 MG/2 ML VIAL IVPUSH (11:05)
[2024-07-13] MEDS: Ketorolac Tromethamine 15 MG/ML VIAL IVPUSH (11:05)
[2024-07-13] MEDS: cefTRIAXone sodium 1 GM VIAL IVPUSH (11:06)
[2024-07-13] MEDS: 0.9 % Sodium Chloride 1,000 ML 999 ML IV (11:06)
[2024-07-13 13:12] VITALS: BP 137/69; PULSE 67; RESP 18; TEMP 36.8; O2SAT 99
== END 2024-07-13 13:13 | disposition home or self-care (01) ==
PROVIDERS: Emergency Provider Emergency Medicine; PCP Internal Medicine
DX: N39.0 Urinary tract infection, site not specified (principal); R11.2 Nausea with vomiting, unspecified; R51.9 Headache, unspecified; R10.2 Pelvic and perineal pain; Z03.818 Encounter for observation for suspected exposure to other biological agents ruled out; Z79.899 Other long term (current) drug therapy
CPT/HCPCS: 0241U; 74176; 80053; 81001; 82248; 83690; 85025; 87086; 96374; 96375; 99283; 99284; J0696; J1885; J2405

== ENCOUNTER → 2024-07-13 10:02 | Outpatient (BNV) | payer OTHER, SELFPAY | PROVIDERS: Emergency Provider Emergency Medicine; PCP Internal Medicine; Visit Provider Radiology Diagnostic Radiology | DX: R10.9 Unspecified abdominal pain (principal) | CPT/HCPCS: 74176 ==